=== PATIENT | male | born 1965 | race Hispanic/Latino ===

== ENCOUNTER 2018-04-09 18:43 | Emergency (ER) | payer OTHER ==
[2018-04-09 19:01] LABS: BASOPHILS % (AUTO) 0.3 % (0.0-5.0); EOSINOPHILS % (AUTO) 0.6 % (0.0-8.0); HEMATOCRIT 47.7 % (42-54); LYMPHOCYTES % (AUTO) 14.4 % (21.0-51.0); MEAN CORPUSCULAR HEMOGLOBIN 32.9 pg (27.0-33.0); MEAN CORPUSCULAR HGB CONC 34.1 g/dL (32.0-36.0); MEAN CORPUSCULAR VOLUME 96.5 fL (79-99); MONOCYTES % (AUTO) 8.7 % (3.0-13.0); NUCLEATED RED BLOOD CELLS 0.1 % (0.0-0.19); PLATELET COUNT (AUTO) 108 K/uL (130-400); RED BLOOD CELL COUNT(AUTO) 4.94 MIL/uL (4.50-6.20); RED CELL DISTRIBUTION WIDTH 14.3 % (11.0-15.5); WHITE BLOOD COUNT (AUTO) 6.9 K/uL (4.8-10.8)
[2018-04-09 19:22] LABS: CREATININE 0.9 mg/dL (0.5-1.5); POTASSIUM 4.6 mmol/L (3.5-5.1)
[2018-04-09 19:26] LABS: ALBUMIN 3.5 g/dL (3.5-5.0); BILIRUBIN,TOTAL 1.2 mg/dL (0.2-1.0); TOTAL PROTEIN, SERUM 8.6 g/dL (6.0-8.3)
[2018-04-09 19:30] LABS: INR 1.06 (0.85-1.15); PARTIAL THROMBOPLASTIN TIME 28.1 SEC (26.3-35.5); PROTHROMBIN TIME 11.1 SEC (9.6-11.6)
[2018-04-09 20:11] LABS: CREATINE KINASE, TOTAL 156 U/L (21-232); MYOGLOBIN 62 ng/mL (10-92)
[2018-04-09] MEDS ORDERED: ACETAMINOPHEN 325 MG TAB ONE (21:03)
== END 2018-04-09 21:46 | disposition home or self-care (01) ==
LOC: EDH 18:43
DX: R07.89 Other chest pain (principal); R20.0 Anesthesia of skin; E11.9 Type 2 diabetes mellitus without complications; I25.810 Atherosclerosis of coronary artery bypass graft(s) without angina pectoris; I10 Essential (primary) hypertension; Z95.1 Presence of aortocoronary bypass graft; Z72.0 Tobacco use
CPT/HCPCS: 36415; 70450; 71045; 80053; 82550; 83874; 83880; 84484; 85025; 85610; 85730; 93005; 94761

== ENCOUNTER 2018-08-26 13:06 | Emergency (ER) | payer OTHER ==
[2018-08-26 13:36] LABS: EOSINOPHILS % (AUTO) 5.8 % (0.0-8.0); HEMATOCRIT 41.2 % (42-54); LYMPHOCYTES % (AUTO) 26.1 % (21.0-51.0); MEAN CORPUSCULAR HEMOGLOBIN 34.2 pg (27.0-33.0); MEAN CORPUSCULAR HGB CONC 35.1 g/dL (32.0-36.0); MEAN CORPUSCULAR VOLUME 97.4 fL (79-99); MONOCYTES % (AUTO) 9.1 % (3.0-13.0); NUCLEATED RED BLOOD CELLS 0.2 % (0.0-0.19); PLATELET COUNT (AUTO) 78 K/uL (130-400); RED BLOOD CELL COUNT(AUTO) 4.23 MIL/uL (4.50-6.20); RED CELL DISTRIBUTION WIDTH 14.5 % (11.0-15.5); WHITE BLOOD COUNT (AUTO) 3.1 K/uL (4.8-10.8)
[2018-08-26] MEDS ORDERED: ASPIRIN 325 MG TABLET ONE (13:40)
[2018-08-26 13:42] LABS: CREATININE 0.9 mg/dL (0.5-1.5); POTASSIUM 4.1 mmol/L (3.5-5.1)
[2018-08-26] MEDS ORDERED: KETOROLAC TROMETHAMINE 30MG/ML ONE (13:42)
[2018-08-26 13:43] LABS: INR 1.16 (0.85-1.15); PARTIAL THROMBOPLASTIN TIME 32.7 SEC (26.3-35.5); PROTHROMBIN TIME 12.1 SEC (9.6-11.6)
[2018-08-26] MEDS ORDERED: CYCLOBENZAPRINE HCL 10 MG TABLET ONE (13:43)
[2018-08-26 13:52] LABS: ALBUMIN 2.4 g/dL (3.5-5.0); BILIRUBIN,TOTAL 1.2 mg/dL (0.2-1.0); TOTAL PROTEIN, SERUM 8.8 g/dL (6.0-8.3)
== END 2018-08-26 15:03 | disposition home or self-care (01) ==
LOC: EDH 13:06
DX: R07.89 Other chest pain (principal); M62.838 Other muscle spasm; E11.9 Type 2 diabetes mellitus without complications; I10 Essential (primary) hypertension; I25.10 Atherosclerotic heart disease of native coronary artery without angina pectoris; Z98.890 Other specified postprocedural states; Z72.0 Tobacco use
CPT/HCPCS: 36415; 71045; 80053; 82550; 83874; 84484; 85025; 85610; 85730; 93005; 96374; 99284; J1885

== ENCOUNTER 2019-06-02 17:49 | Inpatient (IN) | payer OTHER ==
[~2019-06-02] VITALS: Ht 172.7 cm; Wt 81.6 kg
[2019-06-02] MEDS ORDERED: SODIUM CHLORIDE 0.9% 1000ML 1,000 ML IV ONE (18:11)
[2019-06-02] MEDS ORDERED: ONDANSETRON HCL 4 MG/2 ML VIAL ONE ×3 (18:11→22:13)
[2019-06-02 18:28] LABS: BASOPHILS % (AUTO) 0.3 % (0.0-5.0); EOSINOPHILS % (AUTO) 0.1 % (0.0-8.0); LYMPHOCYTES % (AUTO) 13.4 % (21.0-51.0); MEAN CORPUSCULAR HEMOGLOBIN 35.2 pg (27.0-33.0); MEAN CORPUSCULAR VOLUME 106.6 fL (79-99); MONOCYTES % (AUTO) 7.4 % (3.0-13.0); NEUTROPHILS % (AUTO) 77.3 % (40.0-77.0); PLATELET COUNT (AUTO) 109 K/uL (130-400); RED BLOOD CELL COUNT(AUTO) 1.96 MIL/uL (4.50-6.20); RED CELL DISTRIBUTION WIDTH 15.9 % (11.0-15.5); WHITE BLOOD COUNT (AUTO) 17.6 K/uL (4.8-10.8)
[2019-06-02 18:32] LABS: HEMATOCRIT 20.9 % (42-54)
[2019-06-02] MEDS ORDERED: CEFTRIAXONE SODIUM 1 GM ONE (18:43)
[2019-06-02 18:46] LABS: CREATININE 1.8 mg/dL (0.5-1.5); POTASSIUM 4.7 mmol/L (3.5-5.1)
[2019-06-02 18:47] LABS: INR 1.75 (0.85-1.15); PARTIAL THROMBOPLASTIN TIME 33.9 SEC (26.3-35.5)
[2019-06-02] MEDS ORDERED: PANTOPRAZOLE SODIUM 80 MG in NS 100ML IVP SCH (19:00)
[2019-06-02 19:01] LABS: ALBUMIN 1.6 g/dL (3.5-5.0); BILIRUBIN,TOTAL 3.6 mg/dL (0.2-1.0); TROPONIN I 0.07 ng/mL (0.00-0.06)
[2019-06-02 19:27] LABS: APPEARANCE,URINE Clear (CLEAR); BILIRUBIN,URINE Small (NEGATIVE); COLOR,URINE Dark Yellow (YELLOW); GLUCOSE, URINE (UA) 500 mg/dL (NEGATIVE); KETONES,URINE Negative (NEGATIVE); LEUKOCYTE ESTERASE ,URINE Negative (NEGATIVE); NITRATE,URINE Negative (NEGATIVE); OCCULT BLOOD,URINE Negative (NEGATIVE); PH,URINE 5.5 (5.0-8.0); PROTEIN,URINE Negative (NEGATIVE)
[2019-06-02] MEDS ORDERED: PHYTONADIONE 10 MG/1 ML AMP ONE (19:28)
[2019-06-02 19:43] LABS: BACTERIA,URINE Rare /HPF (None Seen); RBC,URINE 0-1 /HPF (0-1)
[2019-06-02 19:44] LABS: SQUAMOUS EPITHELIAL CELL,UR Few /HPF (0-2)
[2019-06-02] MEDS: SODIUM CHLORIDE 0.9% 1000ML 1,000 ML IV SCH (20:26)
[2019-06-02] MEDS ORDERED: HYDRALAZINE HCL 20 MG/ML VIAL IV PRN (20:30)
[2019-06-02] MEDS ORDERED: ACETAMINOPHEN 325 MG TAB PO PRN ×2 (20:30)
[2019-06-02] MEDS ORDERED: MORPHINE SULFATE 2 MG/ML 1ML SYG IV PRN (20:30)
[2019-06-02] MEDS ORDERED: MORPHINE SULFATE 2 MG/ML 1ML SYG ONE (20:41)
[2019-06-02 20:52] LABS: % IRON SATURATION 81.7 % (30-44)
[2019-06-02] MEDS: INSULIN HUMULIN R 100 UNIT/ML 3ML SQ SCH (21:00)
[2019-06-02] MEDS: ZOSYN 3.375GM+NS 50ML 50 ML IV SCH (21:00)
[2019-06-02 21:04] LABS: AMPHET/METH SCREEN,URINE NEGATIVE (NEGATIVE); BENZODIAZEPINES SCREEN,URINE NEGATIVE (NEGATIVE); OPIATE SCREEN,URINE NEGATIVE (NEGATIVE); PHENCYCLIDINE SCREEN,URINE NEGATIVE (NEGATIVE)
[2019-06-02 21:35] LABS: BARBITURATE SCREEN, URINE NEGATIVE (NEGATIVE); CANNABINOID SCREEN,URINE POSITIVE (NEGATIVE); COCAINE SCREEN,URINE NEGATIVE (NEGATIVE)
[2019-06-03] VITALS (39 sets, daily range): BP systolic 73–127; BP diastolic 33–71
[2019-06-03] MEDS: CHLORDIAZEPOXIDE HCL 25 MG CAP PO SCH ×3 (02:00→14:00)
[2019-06-03] MEDS ORDERED: NOREPINEPHRINE BITARTRATE 1 MG/1 ML ML IV ONE (02:47)
[2019-06-03] MEDS ORDERED: SODIUM CHLORIDE 0.9% 250 ML IV ONE ×2 (02:48→16:28)
[2019-06-03] MEDS: SODIUM CHLORIDE 0.9% 1000ML 1,000 ML IV SCH ×2 (03:06→10:21)
[2019-06-03 03:30] LABS: BASOPHILS % (AUTO) 0.4 % (0.0-5.0); EOSINOPHILS % (AUTO) 0.8 % (0.0-8.0); LYMPHOCYTES % (AUTO) 17.8 % (21.0-51.0); MEAN CORPUSCULAR HEMOGLOBIN 31.5 pg (27.0-33.0); MEAN CORPUSCULAR HGB CONC 32.1 g/dL (32.0-36.0); MONOCYTES % (AUTO) 9.2 % (3.0-13.0); NEUTROPHILS % (AUTO) 70.7 % (40.0-77.0); PLATELET COUNT (AUTO) 58 K/uL (130-400); RED BLOOD CELL COUNT(AUTO) 1.97 MIL/uL (4.50-6.20); RED CELL DISTRIBUTION WIDTH 20.5 % (11.0-15.5); WHITE BLOOD COUNT (AUTO) 10.1 K/uL (4.8-10.8)
[2019-06-03] MEDS ORDERED: NOREPINEPHRINE 4MG/NS 250ML 250 ML IV SCH (03:30)
[2019-06-03 03:34] LABS: HEMATOCRIT 19.3 % (42-54)
[2019-06-03 03:53] LABS: CREATININE 1.7 mg/dL (0.5-1.5); POTASSIUM 4.7 mmol/L (3.5-5.1)
[2019-06-03] MEDS: ONDANSETRON HCL 4 MG/2 ML VIAL IV PRN ×2 (03:56→10:21)
[2019-06-03] MEDS ORDERED: METO25TA6 PO (04:57)
[2019-06-03] MEDS: INSULIN HUMULIN R 100 UNIT/ML 3ML SQ SCH ×4 (06:13→21:51)
[2019-06-03] MEDS: ZOSYN 3.375GM+NS 50ML 50 ML IV SCH ×3 (06:46→21:43)
[2019-06-03 07:31] LABS: HEMATOCRIT 23.8 % (42-54)
[2019-06-03] MEDS ORDERED: PANTOPRAZOLE SODIUM 80 MG in SODIUM CHLORIDE 0.9% 100 ML IV SCH (09:00)
--- NOTE | 2019-06-03 09:00 | NUR ---
DR IRBY HERE TO SEE PATIENT
[2019-06-03] MEDS: OCTREOTIDE ACETATE 500 MCG in SODIUM CHLORIDE 0.9% 100 ML IV SCH (09:20)
[2019-06-03] MEDS ORDERED: LORAZEPAM 2 MG/ML 1 ML VIAL IVP PRN (09:30)
[2019-06-03] MEDS ORDERED: [UNRECOGNIZED DRUG - REMARK] MISC PRN (09:30)
[2019-06-03 09:56] LABS: ALANINE AMINOTRANSFERASE 39 U/L (12-78); ALBUMIN 1.7 g/dL (3.5-5.0); ALCOHOL, BLOOD < 3 mg/dL (0-10); ASPARTATE AMINOTRANSFERASE 87 U/L (10-37); BILIRUBIN,TOTAL 3.5 mg/dL (0.2-1.0); CARBON DIOXIDE 22 mmol/L (21-32); CHLORIDE 109 mmol/L (101-111); CREATININE 1.5 mg/dL (0.5-1.5); GLOMERULAR FILTR. RATE CALC 52 mL/min (>60); GLUCOSE,RANDOM 130 mg/dL (70-105); POTASSIUM 4.7 mmol/L (3.5-5.1); SODIUM SERUM 140 mmol/L (136-145); TOTAL PROTEIN, SERUM 6.1 g/dL (6.0-8.3); UREA NITROGEN, BLOOD 49 mg/dL (7-18)
[2019-06-03] MEDS: THIAMINE HCL 100 MG, FOLIC ACID 1 MG, M.V.I. IV [ADULT] 10 ML in SODIUM CHLORIDE 0.9% 1... IV SCH (10:35)
--- NOTE | 2019-06-03 11:10 | NUR ---
DR IRBY INFORMED OF ELEVATED TROPONIN 0.15. CARDIAC PANELS ORDERED Q8HRS
[2019-06-03] MEDS ORDERED: MAGNESIUM 2GM PREMIX 50ML 50 ML IV PRN (11:15)
[2019-06-03] MEDS ORDERED: MAGNESIUM 2GM PREMIX 50ML 50 ML IV ONE (11:52)
--- NOTE | 2019-06-03 12:00 | NUR ---
PT PICKED UP AND TAKEN TO GI LAB
[2019-06-03] MEDS ORDERED: PROPOFOL 10 MG/ML 20ML VIAL IV ONE ×2 (12:14→12:23)
--- NOTE | 2019-06-03 12:45 | NUR ---
PT BACK FROM GI LAB S/P BANDING OF VARICES. HE IS AWAKE AND CALM. V/S STABLE
[2019-06-03 15:17] LABS: TROPONIN I 0.2 ng/mL (0.00-0.06)
--- NOTE | 2019-06-03 17:30 | NUR ---
PT REPORTED HAVING "SHAKES" AND HAD A WITHDRAWAL SCORE OF 9. HE IS NOW MORE CALM AND SCORES A 1. HE IS CURRENTLY GETTING A BLOOD TRANSFUSION AND I WILL CONTINUE TO OBSERVE AND TREAT PER MD ORDERS
--- NOTE | 2019-06-03 18:10 | NUR ---
DC PLAN PER PATIENT, LIVES WITH GIRLFRIEND, IS INDEPENDENT WITH ADLS, NO PROVIDER, HAS CANE AND SHOWER CHAIR, AND FEELS SAFE TO RETURN HOME. SELF REFERRAL PACKET GIVEN, PATIENT VERBALIZED UNDERSTANDING. Addendum: 06/03/19 at 1811 by NEPTALI CHANG RN CM Amended: Links added.
--- NOTE | 2019-06-03 19:00 | NUR ---
Bedside report Received bedside report ,patient is pending 1 unit of platelet transfusion .Patient is on Sandostatin drip
[2019-06-03] MEDS: CHLORDIAZEPOXIDE HCL 5 MG CAPSULE PO SCH (21:44)
--- NOTE | 2019-06-03 22:00 | NUR ---
Patient had received platelet transfusion no adverse reaction noted,V/S stable.
[2019-06-03 23:35] LABS: BASOPHILS % (AUTO) 0.1 % (0.0-5.0); EOSINOPHILS % (AUTO) 0.1 % (0.0-8.0); HEMATOCRIT 23.2 % (42-54); LYMPHOCYTES % (AUTO) 8.9 % (21.0-51.0); MEAN CORPUSCULAR HEMOGLOBIN 31.7 pg (27.0-33.0); MEAN CORPUSCULAR HGB CONC 33.2 g/dL (32.0-36.0); MEAN CORPUSCULAR VOLUME 95.5 fL (79-99); MONOCYTES % (AUTO) 7.4 % (3.0-13.0); NEUTROPHILS % (AUTO) 81.9 % (40.0-77.0); PLATELET COUNT (AUTO) 72 K/uL (130-400); RED BLOOD CELL COUNT(AUTO) 2.43 MIL/uL (4.50-6.20); RED CELL DISTRIBUTION WIDTH 23.2 % (11.0-15.5); WHITE BLOOD COUNT (AUTO) 9.5 K/uL (4.8-10.8)
[2019-06-03 23:49] LABS: INR 1.4 (0.85-1.15); PARTIAL THROMBOPLASTIN TIME 28.5 SEC (26.3-35.5); PROTHROMBIN TIME 14.5 SEC (9.6-11.6)
[2019-06-03 23:55] LABS: TROPONIN I 0.11 ng/mL (0.00-0.06)
[2019-06-04] VITALS (22 sets, daily range): BP systolic 101–134; BP diastolic 34–75
[2019-06-04 04:11] LABS: BASOPHILS % (AUTO) 0.1 % (0.0-5.0); EOSINOPHILS % (AUTO) 0.1 % (0.0-8.0); HEMATOCRIT 22.4 % (42-54); LYMPHOCYTES % (AUTO) 10.3 % (21.0-51.0); MEAN CORPUSCULAR HEMOGLOBIN 31.1 pg (27.0-33.0); MEAN CORPUSCULAR HGB CONC 32.6 g/dL (32.0-36.0); MEAN CORPUSCULAR VOLUME 95.3 fL (79-99); MONOCYTES % (AUTO) 8.4 % (3.0-13.0); NEUTROPHILS % (AUTO) 80.1 % (40.0-77.0); PLATELET COUNT (AUTO) 66 K/uL (130-400); RED BLOOD CELL COUNT(AUTO) 2.35 MIL/uL (4.50-6.20); RED CELL DISTRIBUTION WIDTH 22.9 % (11.0-15.5); WHITE BLOOD COUNT (AUTO) 7.8 K/uL (4.8-10.8)
[2019-06-04 04:18] LABS: CREATININE 1.3 mg/dL (0.5-1.5); POTASSIUM 3.9 mmol/L (3.5-5.1)
[2019-06-04] MEDS: INSULIN HUMULIN R 100 UNIT/ML 3ML SQ SCH ×4 (05:51→21:05)
[2019-06-04] MEDS: ZOSYN 3.375GM+NS 50ML 50 ML IV SCH ×3 (05:52→20:14)
[2019-06-04] MEDS: OCTREOTIDE ACETATE 500 MCG in SODIUM CHLORIDE 0.9% 100 ML IV SCH (05:53)
[2019-06-04] MEDS ORDERED: SODIUM CHLORIDE 0.9% 250 ML IV ONE (05:59)
--- NOTE | 2019-06-04 07:22 | NUR ---
Bedside report given to incoming NOD,pt with ongoing blood transfusion,no adverse reaction noted,will continue to monitor pt.
[2019-06-04] MEDS: PANTOPRAZOLE SODIUM 40 MG TABLET.DR PO SCH (10:37)
[2019-06-04] MEDS: CHLORDIAZEPOXIDE HCL 5 MG CAPSULE PO SCH ×3 (10:37→20:14)
[2019-06-04 11:30] LABS: BASOPHILS % (AUTO) 0.1 % (0.0-5.0); EOSINOPHILS % (AUTO) 0.1 % (0.0-8.0); LYMPHOCYTES % (AUTO) 11.4 % (21.0-51.0); MEAN CORPUSCULAR HEMOGLOBIN 31.5 pg (27.0-33.0); MEAN CORPUSCULAR HGB CONC 33.3 g/dL (32.0-36.0); MEAN CORPUSCULAR VOLUME 94.4 fL (79-99); MONOCYTES % (AUTO) 9.2 % (3.0-13.0); NEUTROPHILS % (AUTO) 77.9 % (40.0-77.0); NUCLEATED RED BLOOD CELLS 0.2 % (0.0-0.19); PLATELET COUNT (AUTO) 68 K/uL (130-400); RED BLOOD CELL COUNT(AUTO) 2.86 MIL/uL (4.50-6.20); RED CELL DISTRIBUTION WIDTH 21.7 % (11.0-15.5); WHITE BLOOD COUNT (AUTO) 9.6 K/uL (4.8-10.8)
[2019-06-04 11:34] LABS: TROPONIN I 0.09 ng/mL (0.00-0.06)
[2019-06-04 11:55] LABS: INR 1.38 (0.85-1.15); PARTIAL THROMBOPLASTIN TIME 28.9 SEC (26.3-35.5); PROTHROMBIN TIME 14.3 SEC (9.6-11.6)
[2019-06-04] MEDS: THIAMINE HCL 100 MG, FOLIC ACID 1 MG, M.V.I. IV [ADULT] 10 ML in SODIUM CHLORIDE 0.9% 1... IV SCH (14:08)
[2019-06-04 15:18] LABS: BASOPHILS % (AUTO) 0.3 % (0.0-5.0); EOSINOPHILS % (AUTO) 0.3 % (0.0-8.0); HEMATOCRIT 25.6 % (42-54); MEAN CORPUSCULAR HEMOGLOBIN 30.9 pg (27.0-33.0); MEAN CORPUSCULAR HGB CONC 32.8 g/dL (32.0-36.0); MEAN CORPUSCULAR VOLUME 94.1 fL (79-99); MONOCYTES % (AUTO) 11.1 % (3.0-13.0); PLATELET COUNT (AUTO) 62 K/uL (130-400); RED BLOOD CELL COUNT(AUTO) 2.72 MIL/uL (4.50-6.20); RED CELL DISTRIBUTION WIDTH 21.6 % (11.0-15.5); WHITE BLOOD COUNT (AUTO) 7.8 K/uL (4.8-10.8)
[2019-06-04 15:32] LABS: INR 1.42 (0.85-1.15); PARTIAL THROMBOPLASTIN TIME 30.5 SEC (26.3-35.5); PROTHROMBIN TIME 14.7 SEC (9.6-11.6)
--- NOTE | 2019-06-04 19:06 | NUR ---
HAND OFF REPORT GIVEN TO JONEL DAWSON
[2019-06-04] MEDS: PROPRANOLOL HCL 10 MG TAB PO SCH (20:14)
[2019-06-05] VITALS (9 sets, daily range): BP systolic 99–125; BP diastolic 45–94
[2019-06-05 03:39] LABS: BASOPHILS % (AUTO) 0.5 % (0.0-5.0); EOSINOPHILS % (AUTO) 1.4 % (0.0-8.0); HEMATOCRIT 24.2 % (42-54); MEAN CORPUSCULAR HGB CONC 32.6 g/dL (32.0-36.0); MEAN CORPUSCULAR VOLUME 94.9 fL (79-99); MONOCYTES % (AUTO) 15.5 % (3.0-13.0); NEUTROPHILS % (AUTO) 63.2 % (40.0-77.0); NUCLEATED RED BLOOD CELLS 0.4 % (0.0-0.19); PLATELET COUNT (AUTO) 52 K/uL (130-400); RED BLOOD CELL COUNT(AUTO) 2.55 MIL/uL (4.50-6.20); RED CELL DISTRIBUTION WIDTH 21.3 % (11.0-15.5); WHITE BLOOD COUNT (AUTO) 5.6 K/uL (4.8-10.8)
[2019-06-05 03:47] LABS: CREATININE 1.3 mg/dL (0.5-1.5); POTASSIUM 3.9 mmol/L (3.5-5.1)
[2019-06-05] MEDS: ZOSYN 3.375GM+NS 50ML 50 ML IV SCH ×3 (05:57→22:38)
[2019-06-05] MEDS: INSULIN HUMULIN R 100 UNIT/ML 3ML SQ SCH ×4 (06:15→21:00)
[2019-06-05 07:15] LABS: HEPATITIS A ANTIBODY IGM Negative (Negative); HEPATITIS B CORE IGM Negative (Negative); HEPATITIS Bs ANTIGEN SCREEN P Negative (Negative)
[2019-06-05] MEDS: PANTOPRAZOLE SODIUM 40 MG TABLET.DR PO SCH (09:32)
[2019-06-05] MEDS: CHLORDIAZEPOXIDE HCL 5 MG CAPSULE PO SCH ×3 (09:32→22:42)
[2019-06-05] MEDS: PROPRANOLOL HCL 10 MG TAB PO SCH ×2 (09:32→22:38)
[2019-06-05] MEDS: THIAMINE HCL 100 MG, FOLIC ACID 1 MG, M.V.I. IV [ADULT] 10 ML in SODIUM CHLORIDE 0.9% 1... IV SCH (09:36)
[2019-06-05] MEDS ORDERED: SODIUM CHLORIDE 0.9% 250 ML IV ONE (12:38)
[2019-06-05] MEDS ORDERED: EPOETIN ALFA 10,000 UNIT/ML VIAL SQ SCH (13:15)
[2019-06-06] VITALS (12 sets, daily range): BP systolic 102–138; BP diastolic 54–76
[2019-06-06 04:34] LABS: BASOPHILS % (AUTO) 0.6 % (0.0-5.0); EOSINOPHILS % (AUTO) 3.3 % (0.0-8.0); HEMATOCRIT 29.5 % (42-54); LYMPHOCYTES % (AUTO) 21.5 % (21.0-51.0); MEAN CORPUSCULAR HEMOGLOBIN 31.4 pg (27.0-33.0); MEAN CORPUSCULAR HGB CONC 33.2 g/dL (32.0-36.0); MEAN CORPUSCULAR VOLUME 94.6 fL (79-99); MONOCYTES % (AUTO) 17.1 % (3.0-13.0); NEUTROPHILS % (AUTO) 56.7 % (40.0-77.0); PLATELET COUNT (AUTO) 51 K/uL (130-400); RED BLOOD CELL COUNT(AUTO) 3.12 MIL/uL (4.50-6.20); RED CELL DISTRIBUTION WIDTH 20.3 % (11.0-15.5); WHITE BLOOD COUNT (AUTO) 5.2 K/uL (4.8-10.8)
[2019-06-06 04:48] LABS: ALBUMIN 1.7 g/dL (3.5-5.0); BILIRUBIN,TOTAL 3.4 mg/dL (0.2-1.0); MAGNESIUM 1.9 mg/dL (1.80-2.40); PHOSPHORUS 2.7 mg/dL (2.5-4.9); POTASSIUM 3.8 mmol/L (3.5-5.1); TOTAL PROTEIN, SERUM 5.8 g/dL (6.0-8.3)
[2019-06-06] MEDS: ZOSYN 3.375GM+NS 50ML 50 ML IV SCH ×2 (06:10→14:08)
[2019-06-06] MEDS: INSULIN HUMULIN R 100 UNIT/ML 3ML SQ SCH ×2 (07:30→11:16)
[2019-06-06] MEDS: PANTOPRAZOLE SODIUM 40 MG TABLET.DR PO SCH (09:13)
[2019-06-06] MEDS: PROPRANOLOL HCL 10 MG TAB PO SCH (09:13)
[2019-06-06] MEDS: CHLORDIAZEPOXIDE HCL 5 MG CAPSULE PO SCH ×2 (09:13→14:06)
[2019-06-06] MEDS ORDERED: LACT PO (14:23)
[2019-06-06] MEDS ORDERED: PANT40TA PO (14:23)
[2019-06-06] MEDS ORDERED: PROP10TA72 PO (14:23)
--- NOTE | 2019-06-06 16:00 | NUR ---
Discharge Patient A/O x3. Made aware of self care techniques, medications to continue at home, & which medications to stop. Also Made aware of F/U appointments with primary and GI Doc. Patient stated he understood the following above. 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
--- NOTE | 2019-06-06 16:30 | NUR ---
Discharged Home IV removed. Patient tolerated well. 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 Patient discharged in wheel chair by BENNY Alberto.
[2019-06-06] MEDS ORDERED: LACTULOSE 20 GM/30 ML UDCUP PO SCH (21:00)
== END 2019-06-06 16:30 | disposition home or self-care (01) | DRG 871 ==
LOC: EDH 17:49 → EDHIP 17:50 → 2BH 06-03 00:04
PROVIDERS: ADMIT Family Medicine; ATTEND Family Medicine
PROC: 30233K1 Transfusion of Nonautologous Frozen Plasma into Peripheral Vein, Percutaneous Approach (ICD-10-PCS; principal; 2019-06-02)
PROC: 30233N1 Transfusion of Nonautologous Red Blood Cells into Peripheral Vein, Percutaneous Approach (ICD-10-PCS; 2019-06-02)
PROC: 30233R1 Transfusion of Nonautologous Platelets into Peripheral Vein, Percutaneous Approach (ICD-10-PCS; 2019-06-02)
PROC: 06L38CZ Occlusion of Esophageal Vein with Extraluminal Device, Via Natural or Artificial Opening Endoscopic (ICD-10-PCS; 2019-06-02)
PROC: 0DJ08ZZ Inspection of Upper Intestinal Tract, Via Natural or Artificial Opening Endoscopic (ICD-10-PCS; 2019-06-02)
DX: A41.9 Sepsis, unspecified organism (principal); I85.11 Secondary esophageal varices with bleeding; E43 Unspecified severe protein-calorie malnutrition; D62 Acute posthemorrhagic anemia; N17.9 Acute kidney failure, unspecified; K92.2 Gastrointestinal hemorrhage, unspecified; K76.6 Portal hypertension; E11.9 Type 2 diabetes mellitus without complications; M47.815 Spondylosis without myelopathy or radiculopathy, thoracolumbar region; I11.9 Hypertensive heart disease without heart failure; K70.30 Alcoholic cirrhosis of liver without ascites; F10.20 Alcohol dependence, uncomplicated; E78.5 Hyperlipidemia, unspecified; F41.9 Anxiety disorder, unspecified; G89.29 Other chronic pain; I25.10 Atherosclerotic heart disease of native coronary artery without angina pectoris; Z80.3 Family history of malignant neoplasm of breast; Z91.19 Patient's noncompliance with other medical treatment and regimen; Z95.1 Presence of aortocoronary bypass graft; Z68.27 Body mass index [BMI] 27.0-27.9, adult
CPT/HCPCS: 36415; 36430; 43244; 71045; 74176; 80048; 80053; 80074; 80305; 81001; 82140; 82270; 82550; 82948; 83540; 83550; 83605; 83735; 83874; 84100; 84145; 84484; 85014; 85018; 85025; 85610; 85730; 86850; 86900; 86901; 86922; 86927; 86999; 87040; 87088; 93005; 99291; C9113; G0378; G0480; J0696; J0885; J1815; J2354; J2405; J2543; J2704; J3411; J3430; J3475; J3490; J7030; P9016; P9017; P9034

== ENCOUNTER 2019-07-09 00:11 | Emergency (ER) | payer MEDICAID ==
[~2019-07-09 00:11] MED LIST: ALPR1TAB2 PO; CEPH500B PO; FURO20TA4 PO; LACT PO; PANT40TA PO; PROP10TA72 PO; SPIR25TA6 PO
[2019-07-09] MEDS ORDERED: TRAMADOL HCL 50 MG TABLET ONE (00:48)
[2019-07-09 00:57] LABS: BASOPHILS % (AUTO) 1.7 % (0.0-5.0); EOSINOPHILS % (AUTO) 12.1 % (0.0-8.0); HEMATOCRIT 31.3 % (42-54); LYMPHOCYTES % (AUTO) 30.8 % (21.0-51.0); MEAN CORPUSCULAR HEMOGLOBIN 31.5 pg (27.0-33.0); MEAN CORPUSCULAR HGB CONC 33.5 g/dL (32.0-36.0); MONOCYTES % (AUTO) 8.3 % (3.0-13.0); NEUTROPHILS % (AUTO) 46.1 % (40.0-77.0); PLATELET COUNT (AUTO) 66 K/uL (130-400); RED BLOOD CELL COUNT(AUTO) 3.33 MIL/uL (4.50-6.20); RED CELL DISTRIBUTION WIDTH 20.9 % (11.0-15.5); WHITE BLOOD COUNT (AUTO) 6.9 K/uL (4.8-10.8)
[2019-07-09 01:03] LABS: CREATININE 1.4 mg/dL (0.5-1.5); POTASSIUM 3.7 mmol/L (3.5-5.1)
[2019-07-09 01:05] LABS: INR 1.43 (0.85-1.15); PROTHROMBIN TIME 14.8 SEC (9.6-11.6)
[2019-07-09 01:07] LABS: ALBUMIN 1.9 g/dL (3.5-5.0); BILIRUBIN,TOTAL 2.6 mg/dL (0.2-1.0); TOTAL PROTEIN, SERUM 7.8 g/dL (6.0-8.3)
[2019-07-09 01:24] LABS: PLATELET MORPHOLOGY COMMENT DECREASED
== END 2019-07-09 07:59 | disposition home or self-care (01) ==
LOC: EDH 00:11
DX: S30.0XXA Contusion of lower back and pelvis, initial encounter (principal); I10 Essential (primary) hypertension; E11.9 Type 2 diabetes mellitus without complications; I25.810 Atherosclerosis of coronary artery bypass graft(s) without angina pectoris; K74.60 Unspecified cirrhosis of liver; Z87.891 Personal history of nicotine dependence; W01.198A Fall on same level from slipping, tripping and stumbling with subsequent striking against other object, initial encounter; Y93.01 Activity, walking, marching and hiking; Y92.096 Garden or yard of other non-institutional residence as the place of occurrence of the external cause; Y99.8 Other external cause status
CPT/HCPCS: 36415; 70450; 72100; 80053; 82140; 85025; 85610; 85730; 93005

== ENCOUNTER 2019-08-01 06:18 | Day surgery (SDC) | payer MEDICAID ==
[~2019-08-01] VITALS: Ht 172.7 cm; Wt 80.7 kg
[~2019-08-01 06:18] MED LIST changes: -ALPR1TAB2 PO; -CEPH500B PO; -FURO20TA4 PO; -PROP10TA72 PO; +PROP40TA7 PO; -SPIR25TA6 PO
[2019-08-01] MEDS ORDERED: SODIUM CHLORIDE 0.9% 1000ML 1,000 ML IV ONE (06:19)
[2019-08-01 07:44] VITALS: BP 140/68
[2019-08-01] MEDS ORDERED: PROPOFOL 10 MG/ML 20ML VIAL IV ONE ×2 (08:43)
--- NOTE | 2019-08-01 08:43 | NUR ---
PT LEFT VIA WHEELCHAIR IN PVT CAR. D/C INSTRUCTIONS GIVEN TO FRIEND, V/S STABLE AND NO COMPLICATIONS UPON D/C
[2019-08-01 09:15] VITALS: BP 94/50
[2019-08-01 09:20] VITALS: BP 94/50
[2019-08-01 09:25] VITALS: BP 108/69
== END 2019-08-01 09:25 | disposition home or self-care (01) ==
LOC: ENDO 06:18 → DAH 06:18 → ENDO 09:25
PROVIDERS: ATTEND Internal Medicine Gastroenterology
DX: K92.1 Melena (principal); D12.3 Benign neoplasm of transverse colon; K29.50 Unspecified chronic gastritis without bleeding; K64.0 First degree hemorrhoids; K57.30 Diverticulosis of large intestine without perforation or abscess without bleeding; I85.10 Secondary esophageal varices without bleeding; K31.89 Other diseases of stomach and duodenum; I10 Essential (primary) hypertension; K72.90 Hepatic failure, unspecified without coma; K70.30 Alcoholic cirrhosis of liver without ascites; I25.10 Atherosclerotic heart disease of native coronary artery without angina pectoris; F41.9 Anxiety disorder, unspecified; F32.9 Major depressive disorder, single episode, unspecified; E03.9 Hypothyroidism, unspecified; E11.9 Type 2 diabetes mellitus without complications; M19.90 Unspecified osteoarthritis, unspecified site
CPT/HCPCS: 43239; 45385; 82948 ×2; 88305; A4215; A4221; A4222; A4223; A4606; A4620; A4663; J2704 ×2; J7030

== ENCOUNTER 2019-12-13 00:08 | Emergency (ER) | payer MEDICAID ==
[2020-03-18] MEDS ORDERED: SUCR1ORA15 PO (00:59)
[2020-03-18] MEDS ORDERED: TRIA0.2573 PO (00:59)
[2020-03-18] MEDS ORDERED: SILD20TA14 PO (00:59)
[2020-03-18] MEDS ORDERED: RIFA550T PO (00:59)
[2020-03-18] MEDS ORDERED: TRAZ150T79 PO (00:59)
[2020-03-18] MEDS ORDERED: PROP10TA10 PO (00:59)
[2020-03-18] MEDS ORDERED: OMEP40CA13 PO (00:59)
[2020-03-18] MEDS ORDERED: SPIR100T PO (00:59)
[2020-04-01] MEDS ORDERED: CLIN300C9 PO (01:26)
[2020-04-01] MEDS ORDERED: GUAI5SYR4 PO (01:26)
== END 2019-12-13 00:55 | disposition left against medical advice (07) ==
LOC: EDH 00:08
DX: R53.1 Weakness (principal); G47.00 Insomnia, unspecified; R53.83 Other fatigue; E11.9 Type 2 diabetes mellitus without complications; I10 Essential (primary) hypertension; I25.10 Atherosclerotic heart disease of native coronary artery without angina pectoris; Z72.0 Tobacco use
CPT/HCPCS: 99281

== ENCOUNTER 2019-12-15 20:40 | Emergency (ER) | payer MEDICAID ==
[2019-12-15 23:24] LABS: BASOPHILS % (AUTO) 1.4 % (0.0-5.0); EOSINOPHILS % (AUTO) 10.4 % (0.0-8.0); HEMATOCRIT 28.1 % (42-54); LYMPHOCYTES % (AUTO) 23.8 % (21.0-51.0); MEAN CORPUSCULAR HEMOGLOBIN 34.9 pg (27.0-33.0); MEAN CORPUSCULAR HGB CONC 34.2 g/dL (32.0-36.0); MEAN CORPUSCULAR VOLUME 102.2 fL (79-99); MONOCYTES % (AUTO) 8.9 % (3.0-13.0); NEUTROPHILS % (AUTO) 53.3 % (40.0-77.0); PLATELET COUNT (AUTO) 53 K/uL (130-400); RED BLOOD CELL COUNT(AUTO) 2.75 MIL/uL (4.50-6.20); RED CELL DISTRIBUTION WIDTH 16.4 % (11.0-15.5); WHITE BLOOD COUNT (AUTO) 4.9 K/uL (4.8-10.8)
[2019-12-15 23:43] LABS: INR 1.82 (0.85-1.15); PARTIAL THROMBOPLASTIN TIME 45.3 SEC (26.3-35.5); PROTHROMBIN TIME 19.2 SEC (9.6-11.6)
[2019-12-15 23:45] LABS: CREATININE 1.5 mg/dL (0.5-1.5); POTASSIUM 3.8 mmol/L (3.5-5.1)
[2019-12-15 23:49] LABS: ALBUMIN 1.8 g/dL (3.5-5.0); BILIRUBIN,TOTAL 4.5 mg/dL (0.2-1.0)
[2019-12-15] MEDS ORDERED: INSULIN HUMULIN R 100 UNIT/ML 3ML ONE (23:53)
[2019-12-16] LABS: PLATELET MORPHOLOGY COMMENT LARGE PLTS PRESENT
== END 2019-12-16 00:38 | disposition home or self-care (01) ==
LOC: EDH 20:40
DX: G47.00 Insomnia, unspecified (principal); F41.9 Anxiety disorder, unspecified; I10 Essential (primary) hypertension; E11.9 Type 2 diabetes mellitus without complications; I25.10 Atherosclerotic heart disease of native coronary artery without angina pectoris
CPT/HCPCS: 36415; 80053; 82550; 84484; 85025; 85610; 85730; 86850; 86900; 86901; 93005; 96372; 99284; J1815

== ENCOUNTER 2020-01-10 00:44 | Emergency (ER) | payer MEDICAID ==
[2020-01-10 01:21] LABS: BASOPHILS % (AUTO) 1.5 % (0.0-5.0); HEMATOCRIT 30.2 % (42-54); LYMPHOCYTES % (AUTO) 20.6 % (21.0-51.0); MEAN CORPUSCULAR HEMOGLOBIN 34.8 pg (27.0-33.0); MEAN CORPUSCULAR HGB CONC 33.8 g/dL (32.0-36.0); MEAN CORPUSCULAR VOLUME 103.1 fL (79-99); MONOCYTES % (AUTO) 10.4 % (3.0-13.0); NEUTROPHILS % (AUTO) 50.8 % (40.0-77.0); PLATELET COUNT (AUTO) 71 K/uL (130-400); RED BLOOD CELL COUNT(AUTO) 2.93 MIL/uL (4.50-6.20); RED CELL DISTRIBUTION WIDTH 16.1 % (11.0-15.5); WHITE BLOOD COUNT (AUTO) 7.3 K/uL (4.8-10.8)
[2020-01-10 01:41] LABS: CREATININE 1.7 mg/dL (0.5-1.5); MAGNESIUM 1.7 mg/dL (1.80-2.40); POTASSIUM 4.2 mmol/L (3.5-5.1)
== END 2020-01-10 02:01 | disposition home or self-care (01) ==
LOC: EDH 00:44
DX: G47.62 Sleep related leg cramps (principal); I25.10 Atherosclerotic heart disease of native coronary artery without angina pectoris; E11.9 Type 2 diabetes mellitus without complications; I10 Essential (primary) hypertension; Z72.0 Tobacco use
CPT/HCPCS: 36415; 80048; 83735; 85025

== ENCOUNTER 2020-05-11 18:08 | Inpatient (IN) | payer MEDICAID ==
[~2020-05-11] VITALS: Ht 172.7 cm; Wt 88.7 kg
[~2020-05-11 18:08] MED LIST changes: +CLIN300C10 PO; +GUAI5SYR4 PO; +OMEP40CA13 PO; -PANT40TA PO; +PROP10TA10 PO; -PROP40TA7 PO; +RIFA550T PO; +SILD20TA14 PO; +SUCR1ORA15 PO; +TRAZ150T79 PO; +TRIA0.2573 PO
[2020-05-11] MEDS ORDERED: ASPIRIN 325 MG TABLET ONE (18:57)
[2020-05-11 19:00] LABS: BASOPHILS % (AUTO) 1.5 % (0.0-5.0); EOSINOPHILS % (AUTO) 16.4 % (0.0-8.0); HEMATOCRIT 28.7 % (42-54); LYMPHOCYTES % (AUTO) 24.2 % (21.0-51.0); MEAN CORPUSCULAR HEMOGLOBIN 35.2 pg (27.0-33.0); MEAN CORPUSCULAR HGB CONC 33.1 g/dL (32.0-36.0); MEAN CORPUSCULAR VOLUME 106.3 fL (79-99); MONOCYTES % (AUTO) 9.7 % (3.0-13.0); NEUTROPHILS % (AUTO) 46.3 % (40.0-77.0); PLATELET COUNT (AUTO) 63 K/uL (130-400); RED CELL DISTRIBUTION WIDTH 16.8 % (11.0-15.5); WHITE BLOOD COUNT (AUTO) 5.4 K/uL (4.8-10.8)
[2020-05-11 19:12] LABS: CREATININE 1.6 mg/dL (0.5-1.5)
[2020-05-11 19:16] LABS: ALBUMIN 1.7 g/dL (3.5-5.0); BILIRUBIN,TOTAL 2.4 mg/dL (0.2-1.0); TOTAL PROTEIN, SERUM 8.4 g/dL (6.0-8.3)
[2020-05-11 19:20] LABS: INR 2.08 (0.85-1.15); PARTIAL THROMBOPLASTIN TIME 46.9 SEC (26.3-35.5); PROTHROMBIN TIME 21.8 SEC (9.6-11.6)
[2020-05-11 20:14] LABS: APPEARANCE,URINE Clear (CLEAR); BILIRUBIN,URINE Moderate (NEGATIVE); COLOR,URINE Dark Yellow (YELLOW); GLUCOSE, URINE (UA) 250 mg/dL (NEGATIVE); KETONES,URINE Trace mg/dL (NEGATIVE); LEUKOCYTE ESTERASE ,URINE Negative (NEGATIVE); NITRATE,URINE Negative (NEGATIVE); OCCULT BLOOD,URINE Negative (NEGATIVE); PROTEIN,URINE Negative (NEGATIVE)
[2020-05-11 20:32] LABS: BACTERIA,URINE Rare /HPF (None Seen); MUCUS,URINE Few LPF (None Seen); RBC,URINE 0-1 /HPF (0-1); SQUAMOUS EPITHELIAL CELL,UR Rare /HPF (0-2); WBC,URINE 0-1 /HPF (0-1)
[2020-05-11] MEDS ORDERED: LACTULOSE 20 GM/30 ML UDCUP ONE (20:35)
[2020-05-11] MEDS ORDERED: NITROGLYCERIN 0.4 MG SL TAB SL PRN (20:45)
[2020-05-11] MEDS ORDERED: ONDANSETRON HCL 4 MG/2 ML VIAL IV PRN (20:45)
[2020-05-11 20:55] LABS: AMPHET/METH SCREEN,URINE NEGATIVE (NEGATIVE); BARBITURATE SCREEN, URINE NEGATIVE (NEGATIVE); BENZODIAZEPINES SCREEN,URINE POSITIVE (NEGATIVE); CANNABINOID SCREEN,URINE POSITIVE (NEGATIVE); COCAINE SCREEN,URINE NEGATIVE (NEGATIVE); OPIATE SCREEN,URINE NEGATIVE (NEGATIVE); PHENCYCLIDINE SCREEN,URINE NEGATIVE (NEGATIVE)
[2020-05-11] MEDS ORDERED: FAMOTIDINE 20MG TAB 20 MG TAB PO SCH (21:00)
[2020-05-11] MEDS: LACTULOSE 20 GM/30 ML UDCUP PO SCH (21:00)
[2020-05-11] MEDS ORDERED: GLUCAGON 1MG KIT 1 MG ML IM PRN (21:15)
[2020-05-11] MEDS ORDERED: DEXTROSE 50%-WATER 50 ML DISP.SYRIN IV PRN (21:15)
[2020-05-11] MEDS ORDERED: SODIUM CHLORIDE 0.9% 500ML 500 ML IV SCH (21:45)
[2020-05-11] MEDS ORDERED: METOCLOPRAMIDE 10 MG/2 ML VIAL ONE (21:55)
[2020-05-11] MEDS ORDERED: DiphenhydrAMINE HCL 50 MG/ML VIAL ONE (21:56)
[2020-05-11] MEDS ORDERED: METRONIDAZOLE 500MG/100ML BAG 100 ML ONE (21:56)
[2020-05-11] MEDS ORDERED: FAMOTIDINE 20MG TAB 20 MG TAB ONE (21:56)
[2020-05-11] MEDS ORDERED: MORPHINE SULFATE 2 MG/ML 1ML SYG IVP ONE (22:15)
[2020-05-12] MEDS ORDERED: LEVOFLOXACIN 500 MG/D5W 100 ML 100 ML ONE (00:18)
[2020-05-12] MEDS ORDERED: MORPHINE SULFATE 2 MG/ML 1ML SYG ONE (01:02)
[2020-05-12] MEDS ORDERED: SODIUM CHLORIDE 0.9% 500ML 500 ML IV ONE (01:02)
[2020-05-12 05:41] LABS: HEMATOCRIT 27.3 % (42-54); MEAN CORPUSCULAR HEMOGLOBIN 34.7 pg (27.0-33.0); MEAN CORPUSCULAR HGB CONC 33.7 g/dL (32.0-36.0); PLATELET COUNT (AUTO) 73 K/uL (130-400); RED BLOOD CELL COUNT(AUTO) 2.65 MIL/uL (4.50-6.20); RED CELL DISTRIBUTION WIDTH 16.5 % (11.0-15.5)
[2020-05-12 05:51] VITALS: BP 128/73
[2020-05-12 05:56] LABS: ALBUMIN 1.5 g/dL (3.5-5.0); BILIRUBIN,TOTAL 6.7 mg/dL (0.2-1.0); CREATININE 1.6 mg/dL (0.5-1.5); MAGNESIUM 1.6 mg/dL (1.80-2.40); POTASSIUM 5.7 mmol/L (3.5-5.1); TOTAL PROTEIN, SERUM 7.5 g/dL (6.0-8.3)
[2020-05-12 06:02] LABS: BASOPHILS % (MANUAL) 2 % (0-2); EOSINOPHILS % (MANUAL) 23 % (1-6); LYMPHOCYTES % (MANUAL) 18 % (22-44); MONOCYTES % (MANUAL) 6 % (2-9); SEGMENTED NEUTROPHILS % 51 % (40-70)
[2020-05-12 06:03] LABS: MAN.DIFF COMMENT-IMPRESSION MANUAL DIFFERENTIAL
[2020-05-12 06:04] LABS: PLATELET MORPHOLOGY COMMENT DECREASED
[2020-05-12] MEDS ORDERED: SPIR100T5 PO (06:15)
[2020-05-12] MEDS ORDERED: RIFA550T PO (06:15)
[2020-05-12] MEDS: INSULIN HUMULIN R 100 UNIT/ML 3ML SQ SCH ×4 (07:09→21:00)
[2020-05-12 08:25] VITALS: BP 115/77
[2020-05-12] MEDS: NON-FORMULARY MEDICATION 1 EACH (Sucralfate 1 GM) PO SCH ×2 (08:39→11:30)
[2020-05-12] MEDS ORDERED: RIFAXIMIN 550 MG TABLET PO SCH (09:00)
[2020-05-12] MEDS: LACTULOSE 20 GM/30 ML UDCUP PO SCH ×3 (09:26→21:23)
[2020-05-12] MEDS: PROPRANOLOL HCL 10 MG TAB PO SCH ×2 (09:26→21:23)
[2020-05-12] MEDS: FAMOTIDINE/PF 20 MG/2 ML VIAL IV SCH ×2 (09:26→21:23)
[2020-05-12] MEDS: SPIRONOLACTONE 25 MG TAB PO SCH (09:27)
[2020-05-12 11:43] VITALS: BP 113/64
[2020-05-12 16:20] VITALS: BP 102/62
[2020-05-12] MEDS: SUCRALFATE 1 GM TABLET PO SCH ×2 (17:07→21:23)
[2020-05-12] MEDS ORDERED: TRAMADOL HCL 50 MG TABLET PO PRN ×2 (18:00)
[2020-05-12 19:57] VITALS: BP 105/56
[2020-05-12] MEDS: RIFAXIMIN 550 MG TABLET PO SCH (21:23)
[2020-05-12 23:47] VITALS: BP 96/52
[2020-05-13] MEDS: MORPHINE SULFATE 2 MG/ML 1ML SYG IVP PRN ×2 (03:38→11:45)
[2020-05-13 03:55] VITALS: BP 121/67
[2020-05-13 05:27] LABS: BASOPHILS % (AUTO) 1.5 % (0.0-5.0); EOSINOPHILS % (AUTO) 13.1 % (0.0-8.0); HEMATOCRIT 26.2 % (42-54); LYMPHOCYTES % (AUTO) 26.3 % (21.0-51.0); MEAN CORPUSCULAR HEMOGLOBIN 34.8 pg (27.0-33.0); MEAN CORPUSCULAR HGB CONC 33.6 g/dL (32.0-36.0); MEAN CORPUSCULAR VOLUME 103.6 fL (79-99); MONOCYTES % (AUTO) 8.7 % (3.0-13.0); NEUTROPHILS % (AUTO) 49.2 % (40.0-77.0); PLATELET COUNT (AUTO) 58 K/uL (130-400); RED BLOOD CELL COUNT(AUTO) 2.53 MIL/uL (4.50-6.20); RED CELL DISTRIBUTION WIDTH 16.4 % (11.0-15.5)
[2020-05-13 05:53] LABS: ALBUMIN 1.4 g/dL (3.5-5.0); BILIRUBIN,DIRECT 3.7 mg/dL (0.0-0.3); BILIRUBIN,TOTAL 6.7 mg/dL (0.2-1.0); CREATININE 1.8 mg/dL (0.5-1.5); POTASSIUM 4.7 mmol/L (3.5-5.1); TOTAL PROTEIN, SERUM 7.3 g/dL (6.0-8.3)
[2020-05-13] MEDS: INSULIN HUMULIN R 100 UNIT/ML 3ML SQ SCH ×4 (06:18→20:49)
[2020-05-13 08:25] VITALS: BP 116/56
[2020-05-13] MEDS: RIFAXIMIN 550 MG TABLET PO SCH ×2 (09:14→20:49)
[2020-05-13] MEDS: PROPRANOLOL HCL 10 MG TAB PO SCH ×2 (09:14→20:49)
[2020-05-13] MEDS: FAMOTIDINE/PF 20 MG/2 ML VIAL IV SCH ×2 (09:14→20:49)
[2020-05-13] MEDS: SUCRALFATE 1 GM TABLET PO SCH ×4 (09:15→20:49)
[2020-05-13] MEDS: SPIRONOLACTONE 25 MG TAB PO SCH (09:15)
[2020-05-13] MEDS: LACTULOSE 20 GM/30 ML UDCUP PO SCH ×3 (09:15→20:49)
[2020-05-13 11:32] VITALS: BP 110/71
[2020-05-13] MEDS: ONDANSETRON HCL 4 MG/2 ML VIAL IV SCH ×3 (12:41→23:44)
[2020-05-13] MEDS: METOCLOPRAMIDE 10 MG/2 ML VIAL IVP SCH ×3 (12:41→23:03)
[2020-05-13] MEDS ORDERED: PHYTONADIONE 10 MG/1 ML AMP SQ SCH (15:00)
[2020-05-13 15:56] VITALS: BP 131/73
[2020-05-13 19:29] VITALS: BP 118/70
[2020-05-13 23:14] VITALS: BP 124/63
[2020-05-14] VITALS (22 sets, daily range): BP systolic 68–169; BP diastolic 31–78
[2020-05-14] MEDS: METOCLOPRAMIDE 10 MG/2 ML VIAL IVP SCH ×3 (05:04→18:26)
[2020-05-14] MEDS: ONDANSETRON HCL 4 MG/2 ML VIAL IV SCH ×3 (05:17→18:25)
[2020-05-14] MEDS: SUCRALFATE 1 GM TABLET PO SCH ×4 (05:17→21:52)
[2020-05-14] MEDS: INSULIN HUMULIN R 100 UNIT/ML 3ML SQ SCH ×4 (05:18→21:00)
[2020-05-14 05:46] LABS: EOSINOPHILS % (AUTO) 6.3 % (0.0-8.0); HEMATOCRIT 25.9 % (42-54); LYMPHOCYTES % (AUTO) 23.3 % (21.0-51.0); MEAN CORPUSCULAR HEMOGLOBIN 34.4 pg (27.0-33.0); MEAN CORPUSCULAR HGB CONC 33.2 g/dL (32.0-36.0); MEAN CORPUSCULAR VOLUME 103.6 fL (79-99); MONOCYTES % (AUTO) 8.3 % (3.0-13.0); NEUTROPHILS % (AUTO) 60.2 % (40.0-77.0); PLATELET COUNT (AUTO) 62 K/uL (130-400); WHITE BLOOD COUNT (AUTO) 7.6 K/uL (4.8-10.8)
[2020-05-14 06:35] LABS: ALBUMIN 1.5 g/dL (3.5-5.0); BILIRUBIN,TOTAL 8.9 mg/dL (0.2-1.0); CREATININE 1.7 mg/dL (0.5-1.5); POTASSIUM 4.6 mmol/L (3.5-5.1); TOTAL PROTEIN, SERUM 7.2 g/dL (6.0-8.3)
[2020-05-14] MEDS ORDERED: PROPOFOL 10 MG/ML 20ML VIAL IV ONE (07:15)
[2020-05-14] MEDS ORDERED: MIDAZOLAM HCL 1 MG/ML 2ML VIAL ONE (07:15)
[2020-05-14] MEDS ORDERED: LIDOCAINE HCL 1% 20 ML VIAL ONE (07:15)
[2020-05-14] MEDS ORDERED: EPHEDRINE SULFATE 50 MG/ML AMPULE ONE (07:33)
[2020-05-14 09:09] LABS: INR 2.1 (0.85-1.15)
[2020-05-14] MEDS ORDERED: THIAMINE HCL 100 MG TABLET PO SCH (10:00)
[2020-05-14] MEDS ORDERED: FOLIC ACID 1 MG TABLET PO SCH (10:00)
[2020-05-14] MEDS: LACTULOSE 20 GM/30 ML UDCUP PO SCH ×3 (10:13→21:00)
[2020-05-14] MEDS: FAMOTIDINE/PF 20 MG/2 ML VIAL IV SCH ×2 (10:13→21:53)
[2020-05-14] MEDS: SPIRONOLACTONE 25 MG TAB PO SCH (10:13)
[2020-05-14] MEDS: RIFAXIMIN 550 MG TABLET PO SCH ×2 (10:13→21:52)
[2020-05-14] MEDS: PROPRANOLOL HCL 10 MG TAB PO SCH ×2 (10:13→21:00)
[2020-05-14] MEDS: MIDODRINE HCL 5 MG TABLET PO SCH ×2 (13:20→21:52)
[2020-05-14] MEDS: MORPHINE SULFATE 2 MG/ML 1ML SYG IVP PRN ×2 (13:27→22:27)
[2020-05-15] MEDS: METOCLOPRAMIDE 10 MG/2 ML VIAL IVP SCH ×3 (00:12→11:31)
[2020-05-15] MEDS: ONDANSETRON HCL 4 MG/2 ML VIAL IV SCH ×3 (00:12→11:31)
[2020-05-15 03:43] VITALS: BP 113/60
[2020-05-15 05:35] LABS: BASOPHILS % (AUTO) 1.5 % (0.0-5.0); EOSINOPHILS % (AUTO) 8.9 % (0.0-8.0); HEMATOCRIT 26.6 % (42-54); LYMPHOCYTES % (AUTO) 28.5 % (21.0-51.0); MEAN CORPUSCULAR HEMOGLOBIN 34.9 pg (27.0-33.0); MEAN CORPUSCULAR HGB CONC 33.8 g/dL (32.0-36.0); MEAN CORPUSCULAR VOLUME 103.1 fL (79-99); NEUTROPHILS % (AUTO) 49.8 % (40.0-77.0); PLATELET COUNT (AUTO) 70 K/uL (130-400); RED BLOOD CELL COUNT(AUTO) 2.58 MIL/uL (4.50-6.20); WHITE BLOOD COUNT (AUTO) 5.3 K/uL (4.8-10.8)
[2020-05-15 05:43] LABS: CREATININE 1.6 mg/dL (0.5-1.5); POTASSIUM 4.7 mmol/L (3.5-5.1)
[2020-05-15 05:52] LABS: % IRON SATURATION 105.3 % (30-44)
[2020-05-15] MEDS: INSULIN HUMULIN R 100 UNIT/ML 3ML SQ SCH ×3 (06:04→16:30)
[2020-05-15 08:00] VITALS: BP 112/54
[2020-05-15] MEDS: SUCRALFATE 1 GM TABLET PO SCH ×3 (08:19→16:34)
[2020-05-15] MEDS: FAMOTIDINE/PF 20 MG/2 ML VIAL IV SCH (08:19)
[2020-05-15] MEDS: RIFAXIMIN 550 MG TABLET PO SCH (08:20)
[2020-05-15] MEDS: SPIRONOLACTONE 25 MG TAB PO SCH (08:20)
[2020-05-15] MEDS: MIDODRINE HCL 5 MG TABLET PO SCH ×2 (08:21→14:35)
[2020-05-15] MEDS: LACTULOSE 20 GM/30 ML UDCUP PO SCH ×2 (08:21→14:35)
[2020-05-15] MEDS: PROPRANOLOL HCL 10 MG TAB PO SCH (08:22)
[2020-05-15] MEDS ORDERED: FOLIC ACID 1 MG TABLET PO SCH (09:00)
[2020-05-15] MEDS ORDERED: THIAMINE HCL 100 MG TABLET PO SCH (09:00)
[2020-05-15 12:00] VITALS: BP 117/59
[2020-05-15 16:00] VITALS: BP 112/69
== END 2020-05-15 18:00 | disposition home or self-care (01) | DRG 48 ==
LOC: EDH 18:08 → EDHIP 18:09 → 4BH 05-12 05:36
PROVIDERS: ADMIT Internal Medicine; ATTEND Internal Medicine
PROC: 0DJ08ZZ Inspection of Upper Intestinal Tract, Via Natural or Artificial Opening Endoscopic (ICD-10-PCS; principal; 2020-05-14)
DX: E11.43 Type 2 diabetes mellitus with diabetic autonomic (poly)neuropathy (principal); K70.31 Alcoholic cirrhosis of liver with ascites; K80.20 Calculus of gallbladder without cholecystitis without obstruction; I12.9 Hypertensive chronic kidney disease with stage 1 through stage 4 chronic kidney disease, or unspecified chronic kidney disease; K72.90 Hepatic failure, unspecified without coma; K57.30 Diverticulosis of large intestine without perforation or abscess without bleeding; N17.9 Acute kidney failure, unspecified; K31.84 Gastroparesis; I25.10 Atherosclerotic heart disease of native coronary artery without angina pectoris; E11.22 Type 2 diabetes mellitus with diabetic chronic kidney disease; I95.9 Hypotension, unspecified; E87.5 Hyperkalemia; D68.9 Coagulation defect, unspecified; K76.6 Portal hypertension; K31.89 Other diseases of stomach and duodenum; D69.59 Other secondary thrombocytopenia; N18.30 Chronic kidney disease, stage 3 unspecified; K22.8 Other specified diseases of esophagus; Z20.828 Contact with and (suspected) exposure to other viral communicable diseases; D53.9 Nutritional anemia, unspecified; E88.09 Other disorders of plasma-protein metabolism, not elsewhere classified; R79.89 Other specified abnormal findings of blood chemistry; F12.10 Cannabis abuse, uncomplicated; F13.10 Sedative, hypnotic or anxiolytic abuse, uncomplicated; R16.1 Splenomegaly, not elsewhere classified; Z80.3 Family history of malignant neoplasm of breast; Z82.49 Family history of ischemic heart disease and other diseases of the circulatory system; Z83.3 Family history of diabetes mellitus; Z95.1 Presence of aortocoronary bypass graft
CPT/HCPCS: 36415; 43235; 71045; 74176; 76700; 80048; 80053; 80076; 80305; 81001; 82140; 82150; 82330; 82550; 82948; 83540; 83550; 83605; 83690; 83735; 84300; 84484; 85025; 85610; 85730; 87040; 87426; 93005; A4606; G0378; J1200; J1956; J2250; J2405; J2704; J2765; J3430; J3490; J7030; J7040; U0003

== ENCOUNTER 2020-06-19 10:36 | Inpatient (IN) | payer MEDICAID ==
[~2020-06-19] VITALS: Ht 172.7 cm; Wt 84.3 kg
[~2020-06-19 10:36] MED LIST changes: -CLIN300C10 PO; -GUAI5SYR4 PO; -OMEP40CA13 PO; +OMEP40CA21 PO; +SPIR100T5 PO
[2020-06-19 11:15] LABS: CREATININE 2.3 mg/dL (0.5-1.5); POTASSIUM 4.8 mmol/L (3.5-5.1)
[2020-06-19 11:19] LABS: ALBUMIN 1.9 g/dL (3.5-5.0); BILIRUBIN,TOTAL 7.4 mg/dL (0.2-1.0); TOTAL PROTEIN, SERUM 7.7 g/dL (6.0-8.3)
[2020-06-19 11:31] LABS: INR 1.87 (0.85-1.15); PROTHROMBIN TIME 18.9 SEC (9.6-11.6)
[2020-06-19 11:33] LABS: PARTIAL THROMBOPLASTIN TIME 48.2 SEC (26.3-35.5)
[2020-06-19 12:03] LABS: BASOPHILS % (AUTO) 0.8 % (0.0-5.0); EOSINOPHILS % (AUTO) 4.4 % (0.0-8.0); HEMATOCRIT 23.4 % (42-54); LYMPHOCYTES % (AUTO) 16.8 % (21.0-51.0); MEAN CORPUSCULAR HEMOGLOBIN 35.6 pg (27.0-33.0); MEAN CORPUSCULAR HGB CONC 33.8 g/dL (32.0-36.0); MEAN CORPUSCULAR VOLUME 105.4 fL (79-99); MONOCYTES % (AUTO) 10.4 % (3.0-13.0); NEUTROPHILS % (AUTO) 65.3 % (40.0-77.0); PLATELET COUNT (AUTO) 58 K/uL (130-400); RED BLOOD CELL COUNT(AUTO) 2.22 MIL/uL (4.50-6.20); RED CELL DISTRIBUTION WIDTH 17.2 % (11.0-15.5); WHITE BLOOD COUNT (AUTO) 6.7 K/uL (4.8-10.8)
[2020-06-19 12:12] LABS: APPEARANCE,URINE Clear (CLEAR); BILIRUBIN,URINE Small (NEGATIVE); COLOR,URINE Dark Yellow (YELLOW); GLUCOSE, URINE (UA) TRACE mg/dL (NEGATIVE); KETONES,URINE Negative (NEGATIVE); LEUKOCYTE ESTERASE ,URINE Trace (NEGATIVE); NITRATE,URINE Negative (NEGATIVE); OCCULT BLOOD,URINE Negative (NEGATIVE); PROTEIN,URINE Negative (NEGATIVE); UROBILINOGEN,URINE 0.2 mg/dL (0.2-1.0)
[2020-06-19 12:16] LABS: B-TYPE NATRIURETIC PEPTIDE 40 pg/mL (0-100)
[2020-06-19 13:00] LABS: BACTERIA,URINE Rare /HPF (None Seen); HYALINE CASTS, URINE 0-1 /LPF (0-1 /LPF); MUCUS,URINE Rare LPF (None Seen); RBC,URINE None Seen /HPF (0-1); SQUAMOUS EPITHELIAL CELL,UR Rare /HPF (0-2); WBC,URINE 0-1 /HPF (0-1)
[2020-06-19 13:09] LABS: PLATELET MORPHOLOGY COMMENT MARKED DECREASE
[2020-06-19] MEDS ORDERED: GUAIFENESIN-DM 200/20 MG 10 ML PO PRN (15:45)
[2020-06-19] MEDS ORDERED: MAG/ALUM/SIMETH 30 ML UDCUP PO PRN (15:45)
[2020-06-19] MEDS ORDERED: ACETAMINOPHEN 325 MG TAB PO PRN ×2 (15:45)
[2020-06-19] MEDS ORDERED: METRONIDAZOLE 500MG/100ML BAG 100 ML IV SCH (15:45)
[2020-06-19] MEDS ORDERED: DiphenhydrAMINE HCL 50 MG/ML VIAL IV PRN (15:45)
[2020-06-19] MEDS ORDERED: CEFTRIAXONE 1G VIAL IV SCH (15:45)
[2020-06-19] MEDS ORDERED: LACTULOSE 20 GM/30 ML UDCUP PO PRN (15:45)
[2020-06-19] MEDS ORDERED: DIPHENHYDRAMINE HCL 25 MG CAPSULE PO PRN (15:45)
[2020-06-19] MEDS ORDERED: NITROGLYCERIN 0.4 MG SL TAB SL PRN (15:45)
[2020-06-19] MEDS ORDERED: METRONIDAZOLE 500MG/100ML BAG 100 ML ONE (19:54)
[2020-06-19 20:05] VITALS: BP 133/80
[2020-06-19] MEDS: METRONIDAZOLE 500MG/100ML BAG 100 ML IV SCH (20:12)
[2020-06-19] MEDS: CEFTRIAXONE 1G VIAL IV SCH (20:12)
[2020-06-19] MEDS: ONDANSETRON 4MG INJ IV PRN (20:12)
[2020-06-19] MEDS: LACTATED RINGERS 1000ML 1,000 ML IV SCH (20:13)
[2020-06-19] MEDS: MORPHINE 2 MG SYG IV PRN (20:13)
[2020-06-20] VITALS (7 sets, daily range): BP systolic 95–138; BP diastolic 52–74
[2020-06-20] MEDS: LACTATED RINGERS 1000ML 1,000 ML IV SCH (01:45)
[2020-06-20 05:18] LABS: BASOPHILS % (AUTO) 0.4 % (0.0-5.0); EOSINOPHILS % (AUTO) 2.5 % (0.0-8.0); HEMATOCRIT 21.6 % (42-54); MEAN CORPUSCULAR HEMOGLOBIN 35.3 pg (27.0-33.0); MEAN CORPUSCULAR HGB CONC 33.8 g/dL (32.0-36.0); MEAN CORPUSCULAR VOLUME 104.3 fL (79-99); MONOCYTES % (AUTO) 8.5 % (3.0-13.0); PLATELET COUNT (AUTO) 52 K/uL (130-400); RED BLOOD CELL COUNT(AUTO) 2.07 MIL/uL (4.50-6.20); RED CELL DISTRIBUTION WIDTH 16.5 % (11.0-15.5); WHITE BLOOD COUNT (AUTO) 5.5 K/uL (4.8-10.8)
[2020-06-20 05:36] LABS: ALBUMIN 1.5 g/dL (3.5-5.0); BILIRUBIN,TOTAL 8.3 mg/dL (0.2-1.0); CREATININE 1.7 mg/dL (0.5-1.5); MAGNESIUM 2.2 mg/dL (1.80-2.40); PHOSPHORUS 4.5 mg/dL (2.5-4.9); TOTAL PROTEIN, SERUM 6.6 g/dL (6.0-8.3); URIC ACID 3.6 mg/dL (2.6-7.2)
[2020-06-20 05:39] LABS: POTASSIUM 6.2 mmol/L (3.5-5.1)
[2020-06-20] MEDS ORDERED: KAYEXALATE 15GM/60ML PO SCH (05:45)
[2020-06-20] MEDS ORDERED: KAYEXALATE 15GM/60ML ONE (05:47)
[2020-06-20] MEDS: METRONIDAZOLE 500MG/100ML BAG 100 ML IV SCH ×3 (05:48→20:40)
[2020-06-20] MEDS ORDERED: INSULIN HUMULIN R 100 UNIT/ML 3ML IV SCH (06:00)
[2020-06-20] MEDS ORDERED: CALCIUM GLUC 1GM/10ML VIAL IV SCH ×2 (06:00→06:45)
[2020-06-20] MEDS ORDERED: DEXTROSE 50%-WATER 25 GM/50 ML VIAL IV SCH (06:00)
[2020-06-20] MEDS ORDERED: CALCIUM GLUC 1GM 1 GM in 0.9%NACL 100ML 100 ML IV SCH (06:30)
[2020-06-20] MEDS ORDERED: DEXTROSE 50%-WATER 50 ML DISP.SYRIN IV SCH (06:30)
[2020-06-20] MEDS: FAMOTIDINE 20MG VIAL IV SCH (08:44)
[2020-06-20 09:28] LABS: CREATININE 1.8 mg/dL (0.5-1.5); POTASSIUM 5.3 mmol/L (3.5-5.1)
[2020-06-20 09:42] LABS: CREATININE,URINE RANDOM 173 mg/dL (30-135); SODIUM,URINE RANDOM 111 mmol/l (40-220)
[2020-06-20] MEDS: LACTULOSE 20 GM/30 ML UDCUP PO SCH ×2 (14:19→20:40)
[2020-06-20] MEDS ORDERED: LACT10SO9 PO (16:52)
[2020-06-20] MEDS: CEFTRIAXONE 1G VIAL IV SCH (20:40)
[2020-06-20] MEDS: MORPHINE 2 MG SYG IV PRN (20:53)
[2020-06-21 04:15] VITALS: BP 126/67
[2020-06-21 05:17] LABS: BASOPHILS % (AUTO) 0.6 % (0.0-5.0); EOSINOPHILS % (AUTO) 2.5 % (0.0-8.0); HEMATOCRIT 21.3 % (42-54); LYMPHOCYTES % (AUTO) 17.6 % (21.0-51.0); MEAN CORPUSCULAR HEMOGLOBIN 35.6 pg (27.0-33.0); MEAN CORPUSCULAR HGB CONC 33.8 g/dL (32.0-36.0); MEAN CORPUSCULAR VOLUME 105.4 fL (79-99); MONOCYTES % (AUTO) 8.2 % (3.0-13.0); PLATELET COUNT (AUTO) 51 K/uL (130-400); RED BLOOD CELL COUNT(AUTO) 2.02 MIL/uL (4.50-6.20); RED CELL DISTRIBUTION WIDTH 16.5 % (11.0-15.5); WHITE BLOOD COUNT (AUTO) 5.2 K/uL (4.8-10.8)
[2020-06-21] MEDS: METRONIDAZOLE 500MG/100ML BAG 100 ML IV SCH ×3 (05:43→19:45)
[2020-06-21 05:48] LABS: ALBUMIN 1.6 g/dL (3.5-5.0); BILIRUBIN,TOTAL 8.8 mg/dL (0.2-1.0); CREATININE 1.6 mg/dL (0.5-1.5); MAGNESIUM 1.5 mg/dL (1.80-2.40); PHOSPHORUS 3.2 mg/dL (2.5-4.9); POTASSIUM 5.9 mmol/L (3.5-5.1); THYROID STIMULATING HORMONE 0.9 uIU/mL (0.36-3.74); TOTAL PROTEIN, SERUM 6.9 g/dL (6.0-8.3); URIC ACID 3.1 mg/dL (2.6-7.2)
[2020-06-21 06:19] LABS: % IRON SATURATION 107.8 % (30-44)
[2020-06-21] MEDS ORDERED: KAYEXALATE 15GM/60ML RC SCH (07:45)
[2020-06-21 08:17] VITALS: BP 112/62
[2020-06-21] MEDS ORDERED: KAYEXALATE 15GM/60ML PO SCH (08:30)
[2020-06-21] MEDS: LACTULOSE 20 GM/30 ML UDCUP PO SCH ×2 (08:53→19:46)
[2020-06-21] MEDS: MAGNESIUM 2GM PREMIX 50ML 50 ML IV SCH ×2 (08:56→11:37)
[2020-06-21] MEDS: FAMOTIDINE 20MG VIAL IV SCH (08:56)
[2020-06-21] MEDS: Vitamin B Complex/Vit C/Folic Acid PO SCH (08:56)
[2020-06-21] MEDS ORDERED: LACTATED RINGERS 1000ML 1,000 ML IV ONE (11:30)
[2020-06-21] MEDS ORDERED: MAGNESIUM 2GM PREMIX 50ML 50 ML IV SCH (11:45)
[2020-06-21 11:50] VITALS: BP 124/65
[2020-06-21 17:04] VITALS: BP 110/54
[2020-06-21] MEDS: CEFTRIAXONE 1G VIAL IV SCH (19:45)
[2020-06-21 20:00] VITALS: BP 113/62
[2020-06-21] MEDS: MORPHINE 2 MG SYG IV PRN (22:24)
[2020-06-21 23:30] VITALS: BP 115/58
[2020-06-22 03:46] LABS: BASOPHILS % (AUTO) 0.7 % (0.0-5.0); EOSINOPHILS % (AUTO) 3.1 % (0.0-8.0); HEMATOCRIT 21.1 % (42-54); MEAN CORPUSCULAR HGB CONC 34.1 g/dL (32.0-36.0); MEAN CORPUSCULAR VOLUME 105.5 fL (79-99); MONOCYTES % (AUTO) 9.4 % (3.0-13.0); PLATELET COUNT (AUTO) 49 K/uL (130-400); RED CELL DISTRIBUTION WIDTH 16.6 % (11.0-15.5); WHITE BLOOD COUNT (AUTO) 5.9 K/uL (4.8-10.8)
[2020-06-22 04:10] LABS: ALBUMIN 1.6 g/dL (3.5-5.0); BILIRUBIN,TOTAL 7.3 mg/dL (0.2-1.0); CREATININE 1.7 mg/dL (0.5-1.5); MAGNESIUM 2.4 mg/dL (1.80-2.40); POTASSIUM 4.8 mmol/L (3.5-5.1); TOTAL PROTEIN, SERUM 6.8 g/dL (6.0-8.3)
[2020-06-22 04:17] VITALS: BP 125/59
[2020-06-22] MEDS: METRONIDAZOLE 500MG/100ML BAG 100 ML IV SCH ×3 (04:46→19:42)
[2020-06-22 08:10] VITALS: BP 120/58
[2020-06-22] MEDS: FAMOTIDINE 20MG VIAL IV SCH (09:28)
[2020-06-22] MEDS: LACTULOSE 20 GM/30 ML UDCUP PO SCH ×2 (09:28→19:42)
[2020-06-22] MEDS: Vitamin B Complex/Vit C/Folic Acid PO SCH (09:29)
[2020-06-22 11:12] VITALS: BP 137/64
[2020-06-22 16:03] VITALS: BP 132/72
[2020-06-22] MEDS: MORPHINE 2 MG SYG IV PRN (17:34)
[2020-06-22 19:00] VITALS: BP 131/67
[2020-06-22] MEDS: RIFAXIMIN 550 MG TABLET PO SCH (19:42)
[2020-06-22] MEDS: CEFTRIAXONE 1G VIAL IV SCH (19:42)
[2020-06-23] VITALS: BP 123/65
[2020-06-23] MEDS: ONDANSETRON 4MG INJ IV PRN (01:20)
[2020-06-23 04:00] VITALS: BP 127/69
[2020-06-23 04:57] LABS: BASOPHILS % (AUTO) 0.5 % (0.0-5.0); EOSINOPHILS % (AUTO) 2.8 % (0.0-8.0); LYMPHOCYTES % (AUTO) 14.6 % (21.0-51.0); MEAN CORPUSCULAR HEMOGLOBIN 36.3 pg (27.0-33.0); MEAN CORPUSCULAR HGB CONC 34.7 g/dL (32.0-36.0); MEAN CORPUSCULAR VOLUME 104.7 fL (79-99); NEUTROPHILS % (AUTO) 66.9 % (40.0-77.0); PLATELET COUNT (AUTO) 42 K/uL (130-400); RED CELL DISTRIBUTION WIDTH 16.7 % (11.0-15.5); WHITE BLOOD COUNT (AUTO) 6.4 K/uL (4.8-10.8)
[2020-06-23 05:11] LABS: HEMATOCRIT 19.9 % (42-54)
[2020-06-23 05:17] LABS: ALBUMIN 1.6 g/dL (3.5-5.0); BILIRUBIN,TOTAL 5.8 mg/dL (0.2-1.0); CREATININE 1.7 mg/dL (0.5-1.5); POTASSIUM 4.3 mmol/L (3.5-5.1); TOTAL PROTEIN, SERUM 6.7 g/dL (6.0-8.3)
[2020-06-23 08:07] VITALS: BP 108/57
[2020-06-23] MEDS: RIFAXIMIN 550 MG TABLET PO SCH (08:30)
[2020-06-23] MEDS: Vitamin B Complex/Vit C/Folic Acid PO SCH (08:30)
[2020-06-23] MEDS: LACTULOSE 20 GM/30 ML UDCUP PO SCH (08:30)
[2020-06-23] MEDS ORDERED: PANTOPRAZOLE 40 MG TAB DR PO SCH (09:00)
[2020-06-23] MEDS ORDERED: 0.9% NACL 250ML 250 ML IV ONE (09:00)
[2020-06-23 11:40] VITALS: BP 134/78
[2020-06-23 15:14] LABS: HEMATOCRIT 26.8 % (42-54)
[2020-06-23 16:00] VITALS: BP 130/75
== END 2020-06-23 16:40 | disposition home or self-care (01) | DRG 282 ==
LOC: EDH 10:36 → EDHIP 10:37 → 3AH 20:03
PROVIDERS: ADMIT Family Medicine; ATTEND Family Medicine
PROC: 30233N1 Transfusion of Nonautologous Red Blood Cells into Peripheral Vein, Percutaneous Approach (ICD-10-PCS; principal; 2020-06-22)
DX: K85.90 Acute pancreatitis without necrosis or infection, unspecified (principal); K70.31 Alcoholic cirrhosis of liver with ascites; K76.7 Hepatorenal syndrome; I12.9 Hypertensive chronic kidney disease with stage 1 through stage 4 chronic kidney disease, or unspecified chronic kidney disease; E87.1 Hypo-osmolality and hyponatremia; E11.22 Type 2 diabetes mellitus with diabetic chronic kidney disease; D64.9 Anemia, unspecified; N17.9 Acute kidney failure, unspecified; N18.30 Chronic kidney disease, stage 3 unspecified; D69.6 Thrombocytopenia, unspecified; I25.10 Atherosclerotic heart disease of native coronary artery without angina pectoris; Z95.1 Presence of aortocoronary bypass graft; Z83.3 Family history of diabetes mellitus; Z82.49 Family history of ischemic heart disease and other diseases of the circulatory system; K80.20 Calculus of gallbladder without cholecystitis without obstruction; F10.10 Alcohol abuse, uncomplicated; Z76.82 Awaiting organ transplant status; D68.9 Coagulation defect, unspecified; K72.90 Hepatic failure, unspecified without coma; K92.2 Gastrointestinal hemorrhage, unspecified; E87.6 Hypokalemia
CPT/HCPCS: 36415; 36430; 76705; 80048; 80053; 81001; 82140; 82270; 82533; 82550; 82570; 82728; 82948; 83540; 83550; 83605; 83690; 83735; 83880; 83935; 84100; 84300; 84443; 84484; 84550; 85014; 85018; 85025; 85610; 85730; 86850; 86900; 86901; 86923; 93005; 93970; G0378; J0610; J0696; J1815; J2405; J3475; J3490; J7050; J7070; J7120; P9016

== ENCOUNTER 2020-08-05 06:38 | Inpatient (IN) | payer MEDICAID ==
[2020-08-05] VITALS (22 sets, daily range): BP systolic 67–115; BP diastolic 31–81
[~2020-08-05] VITALS: Ht 172.7 cm; Wt 107.5 kg
[~2020-08-05 06:38] MED LIST changes: -LACT PO; +LACT10SO9 PO; +OMEP40CA13 PO; -OMEP40CA21 PO; -SILD20TA14 PO; -SPIR100T5 PO; -SUCR1ORA15 PO; -TRAZ150T79 PO; -TRIA0.2573 PO
[2020-08-05 07:09] LABS: BASOPHILS % (AUTO) 0.4 % (0.0-5.0); EOSINOPHILS % (AUTO) 0.3 % (0.0-8.0); HEMATOCRIT 30.8 % (42-54); MEAN CORPUSCULAR HEMOGLOBIN 37.2 pg (27.0-33.0); MEAN CORPUSCULAR HGB CONC 31.2 g/dL (32.0-36.0); MEAN CORPUSCULAR VOLUME 119.4 fL (79-99); MONOCYTES % (AUTO) 6.1 % (3.0-13.0); NUCLEATED RED BLOOD CELLS 0.8 % (0.0-0.19); PLATELET COUNT (AUTO) 73 K/uL (130-400); RED BLOOD CELL COUNT(AUTO) 2.58 MIL/uL (4.50-6.20); RED CELL DISTRIBUTION WIDTH 20.4 % (11.0-15.5)
[2020-08-05 07:20] LABS: ALBUMIN 1.2 g/dL (3.5-5.0); BILIRUBIN,TOTAL 9.2 mg/dL (0.2-1.0); CREATININE 2.5 mg/dL (0.5-1.5); POTASSIUM 3.8 mmol/L (3.5-5.1); TOTAL PROTEIN, SERUM 6.8 g/dL (6.0-8.3)
[2020-08-05] MEDS ORDERED: ZOSYN 3.375GM+NS 50ML 50 ML IV ONE (07:49)
[2020-08-05] MEDS ORDERED: SODIUM CHLORIDE 0.9% 1000ML 1,000 ML IV ONE ×3 (07:49→23:20)
[2020-08-05] MEDS ORDERED: ONDANSETRON HCL 4 MG/2 ML VIAL ONE (07:49)
[2020-08-05] MEDS ORDERED: MORPHINE SULFATE 4 MG/1ML SYG ONE (07:50)
[2020-08-05 08:27] LABS: ABG BASE EXCESS -24.9 mmol/L (-2.0-3.0); ABG HCO3 5.7 mmol/L (21.0-28.0); ABG OXYGEN SATURATION 95.1 % (95.0-99.0); ABG PCO2 26 mmHg (35-48)
[2020-08-05 08:40] LABS: INR > 7.00 (0.85-1.15); PROTHROMBIN TIME > 90.0 SEC (9.6-11.6)
[2020-08-05 08:42] LABS: PARTIAL THROMBOPLASTIN TIME 95.4 SEC (26.3-35.5)
[2020-08-05 08:46] LABS: CREATININE 2.5 mg/dL (0.5-1.5)
[2020-08-05] MEDS ORDERED: SODIUM BICARB 50MEQ 50ML VIAL 50 ML ONE (09:05)
[2020-08-05] MEDS ORDERED: VANCOMYCIN 1GM+NS 250ML 250 ML IV ONE (09:05)
[2020-08-05] MEDS ORDERED: SODIUM BICARB IV SCH (09:15)
[2020-08-05] MEDS ORDERED: SODIUM CHLORIDE 0.9% IV SCH (09:15)
[2020-08-05 09:25] LABS: POTASSIUM 3.9 mmol/L (3.5-5.1)
[2020-08-05 10:13] LABS: INR > 7.00 (0.85-1.15); PROTHROMBIN TIME > 90.0 SEC (9.6-11.6)
[2020-08-05 10:14] LABS: PARTIAL THROMBOPLASTIN TIME 122.5 SEC (26.3-35.5)
[2020-08-05] MEDS ORDERED: ACETAMINOPHEN 325 MG TAB PO PRN ×2 (13:45)
[2020-08-05] MEDS ORDERED: ONDANSETRON HCL 4 MG/2 ML VIAL IV PRN (13:45)
[2020-08-05] MEDS ORDERED: VANCOMYCIN PROTOCOL PER PHARMACY IV PRN (13:45)
[2020-08-05] MEDS ORDERED: MORPHINE SULFATE 2 MG/ML 1ML SYG IV PRN (13:45)
[2020-08-05] MEDS ORDERED: PHYTONADIONE 10 MG/1 ML AMP ONE (14:14)
[2020-08-05] MEDS ORDERED: PHARMACY COMMUNICATION MISC SCH (14:30)
[2020-08-05] MEDS ORDERED: PHYTONADIONE 10 MG/1 ML AMP IM SCH (15:00)
[2020-08-05] MEDS ORDERED: VANCOMYCIN 1.5 GM in SODIUM CHLORIDE 0.9% 250 ML IV SCH (15:00)
[2020-08-05] MEDS ORDERED: COMPOUND IV REFRIGERATED 1 EACH IVSOLN MISC PRN (15:30)
[2020-08-05] MEDS ORDERED: VASOPRESSIN 20 UNITS in SODIUM CHLORIDE 0.9% 100 ML IV SCH ×2 (17:22→17:30)
[2020-08-05] MEDS ORDERED: LACTATED RINGERS 1000ML IV SCH (17:30)
[2020-08-05] MEDS: PHYTONADIONE 10 MG in SODIUM CHLORIDE 0.9% 50 ML SQ SCH ×2 (17:30→19:50)
[2020-08-05] MEDS ORDERED: NOREPINEPHRINE 4MG/NS 250ML 250 ML IV SCH (17:30)
[2020-08-05 17:51] LABS: ABG BASE EXCESS -20.6 mmol/L (-2.0-3.0); ABG HCO3 9.8 mmol/L (21.0-28.0); ABG OXYGEN SATURATION 90.9 % (95.0-99.0); ABG PCO2 39 mmHg (35-48)
[2020-08-05] MEDS: MEROPENEM 1 GM VIAL IVP SCH (18:07)
[2020-08-05 18:40] LABS: FIBRINOGEN < 50 mg/dL (180-350)
[2020-08-05 19:04] LABS: INR > 7.00 (0.85-1.15)
[2020-08-05 19:05] LABS: PROTHROMBIN TIME > 90.0 SEC (9.6-11.6)
[2020-08-05] MEDS: ALBUMIN (HUMAN) 25% 50 ML IV SCH (19:43)
[2020-08-05] MEDS: NOREPINEPHRINE 4MG/NS 250ML 250 ML IV SCH ×2 (19:53→22:26)
[2020-08-05] MEDS ORDERED: FAMOTIDINE/PF 20 MG/2 ML VIAL IV SCH (21:00)
[2020-08-05] MEDS: MIDODRINE HCL 5 MG TABLET PO SCH (21:00)
[2020-08-05] MEDS ORDERED: ZOSYN 3.375GM+NS 50ML 50 ML IV SCH (21:00)
[2020-08-05] MEDS: SODIUM CHLORIDE 0.9% IV SCH (21:12)
[2020-08-05] MEDS: SODIUM BICARB IV SCH (21:12)
[2020-08-05] MEDS ORDERED: SODIUM CHLORIDE 0.9% 250 ML IV ONE (21:34)
[2020-08-05] MEDS: OCTREOTIDE ACETATE 100 MCG/ML AMP SQ SCH (21:39)
[2020-08-05] MEDS: LACTULOSE 20 GM/30 ML UDCUP PO SCH ×2 (21:40→21:42)
[2020-08-05] MEDS ORDERED: SODIUM CHLORIDE 0.9% 500ML 500 ML IV ONE (23:29)
[2020-08-06] VITALS (69 sets, daily range): BP systolic 87–132; BP diastolic 34–80
[2020-08-06] MEDS ORDERED: ALBUMIN (HUMAN) 25% 50 ML IV SCH
[2020-08-06] MEDS: ALBUMIN (HUMAN) 25% 50 ML IV SCH ×4 (00:34→18:09)
[2020-08-06] MEDS: LACTULOSE 20 GM/30 ML UDCUP PO SCH ×2 (00:53→04:39)
[2020-08-06 04:04] LABS: BASOPHILS % (AUTO) 0.2 % (0.0-5.0); EOSINOPHILS % (AUTO) 0.1 % (0.0-8.0); HEMATOCRIT 23.3 % (42-54); LYMPHOCYTES % (AUTO) 2.8 % (21.0-51.0); MEAN CORPUSCULAR HEMOGLOBIN 36.9 pg (27.0-33.0); MEAN CORPUSCULAR HGB CONC 30.9 g/dL (32.0-36.0); MEAN CORPUSCULAR VOLUME 119.5 fL (79-99); MONOCYTES % (AUTO) 5.7 % (3.0-13.0); NEUTROPHILS % (AUTO) 87.2 % (40.0-77.0); NUCLEATED RED BLOOD CELLS 0.7 % (0.0-0.19); PLATELET COUNT (AUTO) 34 K/uL (130-400); RED BLOOD CELL COUNT(AUTO) 1.95 MIL/uL (4.50-6.20); RED CELL DISTRIBUTION WIDTH 20.5 % (11.0-15.5); WHITE BLOOD COUNT (AUTO) 12.2 K/uL (4.8-10.8)
[2020-08-06 04:38] LABS: ALBUMIN 1.6 g/dL (3.5-5.0); BILIRUBIN,TOTAL 9.9 mg/dL (0.2-1.0); CREATININE 2.7 mg/dL (0.5-1.5); MAGNESIUM 2.4 mg/dL (1.80-2.40); PHOSPHORUS 8.8 mg/dL (2.5-4.9); POTASSIUM 4.6 mmol/L (3.5-5.1); THYROID STIMULATING HORMONE 0.3 uIU/mL (0.36-3.74); TOTAL PROTEIN, SERUM 5.9 g/dL (6.0-8.3); URIC ACID 5.1 mg/dL (2.6-7.2)
[2020-08-06 04:52] LABS: INR 2.85 (0.85-1.15); PROTHROMBIN TIME 28.2 SEC (9.6-11.6)
[2020-08-06 05:09] LABS: ERYTHROCYTE SEDIMENTATION RATE 30 MM/HR (0-20)
[2020-08-06] MEDS ORDERED: DEXTROSE 50%-WATER 50 ML DISP.SYRIN IV ONE (05:13)
[2020-08-06] MEDS ORDERED: DEXTROSE 50%-WATER 50 ML DISP.SYRIN IV PRN (05:30)
[2020-08-06] MEDS: MEROPENEM 1 GM VIAL IVP SCH (05:49)
[2020-08-06] MEDS: SODIUM BICARB 50MEQ 50ML VIAL IVPB SCH ×2 (06:00)
[2020-08-06 08:12] LABS: ABG BASE EXCESS -10.7 mmol/L (-2.0-3.0); ABG HCO3 15.5 mmol/L (21.0-28.0); ABG OXYGEN SATURATION 89.7 % (95.0-99.0); ABG PCO2 36 mmHg (35-48)
[2020-08-06 08:14] LABS: ABG BASE EXCESS -9.6 mmol/L (-2.0-3.0); ABG HCO3 16.4 mmol/L (21.0-28.0); ABG OXYGEN SATURATION 90.8 % (95.0-99.0); ABG PCO2 36 mmHg (35-48)
[2020-08-06] MEDS ORDERED: PANTOPRAZOLE SODIUM 80 MG in SODIUM CHLORIDE 0.9% 100 ML IVP SCH (08:30)
[2020-08-06] MEDS: MIDODRINE HCL 5 MG TABLET PO SCH ×3 (09:00→21:00)
[2020-08-06] MEDS ORDERED: PHYTONADIONE 10 MG in SODIUM CHLORIDE 0.9% 50 ML SQ SCH ×2 (09:00→09:09)
[2020-08-06] MEDS ORDERED: VANCOMYCIN 1.5 GM in SODIUM CHLORIDE 0.9% 250 ML IV SCH (09:00)
[2020-08-06] MEDS: SODIUM BICARB IV SCH (09:00)
[2020-08-06] MEDS ORDERED: CEFTRIAXONE SODIUM 500 MG VIAL IV SCH (09:00)
[2020-08-06] MEDS: OCTREOTIDE ACETATE 100 MCG/ML AMP SQ SCH (09:00)
[2020-08-06] MEDS: SODIUM CHLORIDE 0.9% IV SCH (09:00)
[2020-08-06] MEDS ORDERED: OCTREOTIDE ACETATE 1,250 MCG in SODIUM CHLORIDE 0.9% 250 ML IV SCH (09:09)
[2020-08-06] MEDS: CEFTRIAXONE SODIUM 1 GM IVP SCH (09:11)
[2020-08-06] MEDS ORDERED: DEXTROSE 50%-WATER 50 ML DISP.SYRIN IV SCH (09:30)
[2020-08-06] MEDS ORDERED: SODIUM CHLORIDE 0.9% 250 ML IV ONE (10:33)
[2020-08-06] MEDS: DEXTROSE 10%-WATER 1,000 ML IV SCH ×3 (10:38→22:58)
[2020-08-06] MEDS: SODIUM BICARB 8.4% 50ML SYRING 150 MEQ in STERILE WATER INJ 1000ML BAG 1,000 ML IVP NR ×2 (10:38→18:25)
[2020-08-06] MEDS ORDERED: OCTREOTIDE ACETATE 500 MCG in SODIUM CHLORIDE 0.9% 97.5 ML IV SCH (11:00)
[2020-08-06 14:09] LABS: APPEARANCE,URINE CLOUDY (CLEAR); BILIRUBIN,URINE MODERATE (NEGATIVE); COLOR,URINE YELLOW (YELLOW); GLUCOSE, URINE (UA) NEGATIVE (NEGATIVE); KETONES,URINE 5 mg/dL (NEGATIVE); LEUKOCYTE ESTERASE ,URINE NEGATIVE (NEGATIVE); NITRATE,URINE POSITIVE (NEGATIVE); OCCULT BLOOD,URINE LARGE (NEGATIVE); PROTEIN,URINE 30 mg/dL (NEGATIVE); UROBILINOGEN,URINE 0.2 mg/dL (0.2-1.0)
[2020-08-06 14:17] LABS: AMPHET/METH SCREEN,URINE NEGATIVE (NEGATIVE); BARBITURATE SCREEN, URINE NEGATIVE (NEGATIVE); BENZODIAZEPINES SCREEN,URINE NEGATIVE (NEGATIVE); CANNABINOID SCREEN,URINE NEGATIVE (NEGATIVE); COCAINE SCREEN,URINE NEGATIVE (NEGATIVE); OPIATE SCREEN,URINE POSITIVE (NEGATIVE); PHENCYCLIDINE SCREEN,URINE NEGATIVE (NEGATIVE)
[2020-08-06 14:34] LABS: BACTERIA,URINE Moderate /HPF (None Seen); MUCUS,URINE Rare LPF (None Seen); SQUAMOUS EPITHELIAL CELL,UR 0-2 /HPF (0-2)
[2020-08-06 15:30] LABS: INR 1.79 (0.85-1.15); PROTHROMBIN TIME 18.5 SEC (9.6-11.6)
[2020-08-06 15:32] LABS: PARTIAL THROMBOPLASTIN TIME 47.3 SEC (26.3-35.5)
[2020-08-06 16:18] LABS: POTASSIUM 4.5 mmol/L (3.5-5.1)
[2020-08-06 16:20] LABS: BASOPHILS % (AUTO) 0.6 % (0.0-5.0); EOSINOPHILS % (AUTO) 0.1 % (0.0-8.0); HEMATOCRIT 25.4 % (42-54); LYMPHOCYTES % (AUTO) 3.2 % (21.0-51.0); MEAN CORPUSCULAR HEMOGLOBIN 35.4 pg (27.0-33.0); MEAN CORPUSCULAR HGB CONC 31.5 g/dL (32.0-36.0); MEAN CORPUSCULAR VOLUME 112.4 fL (79-99); MONOCYTES % (AUTO) 6.1 % (3.0-13.0); NEUTROPHILS % (AUTO) 78.5 % (40.0-77.0); NUCLEATED RED BLOOD CELLS 0.7 % (0.0-0.19); PLATELET COUNT (AUTO) 30 K/uL (130-400); RED BLOOD CELL COUNT(AUTO) 2.26 MIL/uL (4.50-6.20); RED CELL DISTRIBUTION WIDTH 23.1 % (11.0-15.5); WHITE BLOOD COUNT (AUTO) 12.2 K/uL (4.8-10.8)
[2020-08-06] MEDS: PHYTONADIONE 10 MG in SODIUM CHLORIDE 0.9% 50 ML SQ SCH (17:13)
[2020-08-06] MEDS: PANTOPRAZOLE SODIUM 80 MG in SODIUM CHLORIDE 0.9% 100 ML IVP SCH ×2 (17:27→22:58)
[2020-08-06] MEDS: NOREPINEPHRINE 4MG/NS 250ML 250 ML IV SCH ×3 (17:28→19:32)
[2020-08-06 17:35] LABS: BASOPHILS % (AUTO) 0.4 % (0.0-5.0); EOSINOPHILS % (AUTO) 0.1 % (0.0-8.0); HEMATOCRIT 25.1 % (42-54); LYMPHOCYTES % (AUTO) 2.4 % (21.0-51.0); MEAN CORPUSCULAR HGB CONC 31.5 g/dL (32.0-36.0); MEAN CORPUSCULAR VOLUME 111.1 fL (79-99); NEUTROPHILS % (AUTO) 83.3 % (40.0-77.0); NUCLEATED RED BLOOD CELLS 0.7 % (0.0-0.19); PLATELET COUNT (AUTO) 31 K/uL (130-400); RED BLOOD CELL COUNT(AUTO) 2.26 MIL/uL (4.50-6.20); RED CELL DISTRIBUTION WIDTH 23.7 % (11.0-15.5); WHITE BLOOD COUNT (AUTO) 13.6 K/uL (4.8-10.8)
[2020-08-06] MEDS ORDERED: NOREPINEPHRINE 4MG/NS 250ML 250 ML IV SCH (20:00)
[2020-08-06] MEDS ORDERED: NOREPINEPHRINE BITARTRATE 16 MG in SODIUM CHLORIDE 0.9% 250 ML IV SCH (20:30)
[2020-08-06] MEDS ORDERED: NOREPINEPHRINE 4MG/NS 250ML 250 ML IV ONE (23:32)
[2020-08-07] VITALS (35 sets, daily range): BP systolic 61–132; BP diastolic 24–44
[2020-08-07] MEDS: ALBUMIN (HUMAN) 25% 50 ML IV SCH ×3 (00:10→13:43)
[2020-08-07] MEDS: SODIUM BICARB 8.4% 50ML SYRING 150 MEQ in STERILE WATER INJ 1000ML BAG 1,000 ML IVP NR ×3 (01:44→15:52)
[2020-08-07 03:33] LABS: BASOPHILS % (AUTO) 0.5 % (0.0-5.0); EOSINOPHILS % (AUTO) 0.1 % (0.0-8.0); HEMATOCRIT 24.5 % (42-54); LYMPHOCYTES % (AUTO) 3.7 % (21.0-51.0); MEAN CORPUSCULAR HEMOGLOBIN 34.9 pg (27.0-33.0); MEAN CORPUSCULAR HGB CONC 30.6 g/dL (32.0-36.0); MONOCYTES % (AUTO) 4.6 % (3.0-13.0); NEUTROPHILS % (AUTO) 90.5 % (40.0-77.0); NUCLEATED RED BLOOD CELLS 0.6 % (0.0-0.19); PLATELET COUNT (AUTO) 28 K/uL (130-400); RED BLOOD CELL COUNT(AUTO) 2.15 MIL/uL (4.50-6.20); RED CELL DISTRIBUTION WIDTH 25.1 % (11.0-15.5); WHITE BLOOD COUNT (AUTO) 19.1 K/uL (4.8-10.8)
[2020-08-07] MEDS ORDERED: NOREPINEPHRINE 4MG/NS 250ML 250 ML IV ONE (03:47)
[2020-08-07] MEDS: NOREPINEPHRINE BIT/0.9 % NACL 250 ML IV ONE ×2 (03:59→04:25)
[2020-08-07 04:01] LABS: ALBUMIN 2.4 g/dL (3.5-5.0); BILIRUBIN,TOTAL 14.2 mg/dL (0.2-1.0); CREATININE 3.4 mg/dL (0.5-1.5); MAGNESIUM 2.9 mg/dL (1.80-2.40); PHOSPHORUS 8.3 mg/dL (2.5-4.9); POTASSIUM 4.8 mmol/L (3.5-5.1); TOTAL PROTEIN, SERUM 6.2 g/dL (6.0-8.3)
[2020-08-07 04:29] LABS: ABG HCO3 20.4 mmol/L (21.0-28.0); ABG OXYGEN SATURATION 82.3 % (95.0-99.0); ABG PCO2 62 mmHg (35-48)
[2020-08-07 06:20] LABS: INR 2.83 (0.85-1.15); PROTHROMBIN TIME 28.1 SEC (9.6-11.6)
[2020-08-07 06:22] LABS: PARTIAL THROMBOPLASTIN TIME 62.7 SEC (26.3-35.5)
[2020-08-07] MEDS ORDERED: PHARMACY COMMUNICATION MISC SCH ×2 (06:30→14:45)
[2020-08-07] MEDS ORDERED: NOREPINEPHRINE BIT/0.9 % NACL 250 ML IV ONE (07:41)
[2020-08-07] MEDS: MIDODRINE HCL 5 MG TABLET PO SCH ×2 (09:00→11:52)
[2020-08-07] MEDS: LACTULOSE 20 GM/30 ML UDCUP PO SCH (09:00)
[2020-08-07] MEDS ORDERED: VANCOMYCIN 1GM+NS 250ML IV SCH (09:00)
[2020-08-07 09:12] LABS: HEPATITIS A ANTIBODY IGM Negative (Negative); HEPATITIS B CORE IGM Negative (Negative); HEPATITIS Bs ANTIGEN SCREEN P Negative (Negative)
[2020-08-07] MEDS ORDERED: VASOPRESSIN 40 UNITS in SODIUM CHLORIDE 0.9% 40 ML IV SCH (09:35)
[2020-08-07] MEDS ORDERED: NOREPINEPHRINE BIT/0.9 % NACL 250 ML IV SCH (09:45)
[2020-08-07] MEDS: CEFTRIAXONE SODIUM 1 GM IVP SCH (10:00)
[2020-08-07] MEDS ORDERED: NOREPINEPHRINE BITARTRATE 8 MG in SODIUM CHLORIDE 0.9% 250 ML IV PRN (10:30)
[2020-08-07] MEDS: PANTOPRAZOLE SODIUM 80 MG in SODIUM CHLORIDE 0.9% 100 ML IVP SCH (10:49)
[2020-08-07] MEDS ORDERED: ZOSYN 3.375GM+NS 50ML 50 ML IV SCH (11:15)
[2020-08-07] MEDS ORDERED: MORPHINE-NS 50 MG/50 ML 50 ML IV SCH (15:00)
[2020-08-07] MEDS ORDERED: MORPHINE SULFATE 2 MG/ML 1ML SYG ONE (15:07)
== END 2020-08-07 16:00 | disposition expired | DRG 720 ==
LOC: EDH 06:38 → EDHIP 13:38 → 2CH 15:11
PROVIDERS: ADMIT Internal Medicine; ATTEND Internal Medicine
PROC: 30233N1 Transfusion of Nonautologous Red Blood Cells into Peripheral Vein, Percutaneous Approach (ICD-10-PCS; principal; 2020-08-06)
PROC: 30233K1 Transfusion of Nonautologous Frozen Plasma into Peripheral Vein, Percutaneous Approach (ICD-10-PCS; 2020-08-06)
PROC: 30233R1 Transfusion of Nonautologous Platelets into Peripheral Vein, Percutaneous Approach (ICD-10-PCS; 2020-08-06)
PROC: 5A09457 Assistance with Respiratory Ventilation, 24-96 Consecutive Hours, Continuous Positive Airway Pressure (ICD-10-PCS; 2020-08-06)
DX: A41.9 Sepsis, unspecified organism (principal); R65.21 Severe sepsis with septic shock; E87.2 Acidosis; D64.9 Anemia, unspecified; E87.1 Hypo-osmolality and hyponatremia; K70.31 Alcoholic cirrhosis of liver with ascites; J98.11 Atelectasis; B96.89 Other specified bacterial agents as the cause of diseases classified elsewhere; D61.818 Other pancytopenia; D65 Disseminated intravascular coagulation [defibrination syndrome]; D73.1 Hypersplenism; E03.9 Hypothyroidism, unspecified; E07.81 Sick-euthyroid syndrome; E11.22 Type 2 diabetes mellitus with diabetic chronic kidney disease; E11.649 Type 2 diabetes mellitus with hypoglycemia without coma; E11.65 Type 2 diabetes mellitus with hyperglycemia; E66.9 Obesity, unspecified; Z68.36 Body mass index [BMI] 36.0-36.9, adult; E87.4 Mixed disorder of acid-base balance; E88.09 Other disorders of plasma-protein metabolism, not elsewhere classified; F10.10 Alcohol abuse, uncomplicated; I12.9 Hypertensive chronic kidney disease with stage 1 through stage 4 chronic kidney disease, or unspecified chronic kidney disease; I25.10 Atherosclerotic heart disease of native coronary artery without angina pectoris; J18.9 Pneumonia, unspecified organism; K21.9 Gastro-esophageal reflux disease without esophagitis; K70.40 Alcoholic hepatic failure without coma; K81.1 Chronic cholecystitis; N18.30 Chronic kidney disease, stage 3 unspecified; N25.81 Secondary hyperparathyroidism of renal origin; N17.0 Acute kidney failure with tubular necrosis; R58 Hemorrhage, not elsewhere classified; Z66 Do not resuscitate; Z76.82 Awaiting organ transplant status; Z80.3 Family history of malignant neoplasm of breast; Z83.3 Family history of diabetes mellitus; Z95.1 Presence of aortocoronary bypass graft; Z20.822 Contact with and (suspected) exposure to COVID-19
CPT/HCPCS: 36415; 36430; 36600; 71045; 71250; 76700; 80048; 80053; 80074; 80305; 81001; 82140; 82435; 82533; 82550; 82803; 82947; 82948; 83605; 83690; 83735; 83880; 83935; 84100; 84132; 84145; 84295; 84300; 84439; 84443; 84484; 84550; 85018; 85025; 85378; 85384; 85610; 85651; 85730; 86701; 86850; 86900; 86901; 86923; 86927; 87040; 87077; 87088; 87186; 87390; 87426; 87641; 93005; 93306; 93356; 93970; 94660; C9113; G0378; J0696; J2185; J2270; J2354; J2405; J2543; J3370; J3430; J3490; J7030; J7040; J7050; J7070; P9012; P9016; P9017; P9034; P9047; U0003